=== PATIENT | female | born 1975 | race Caucasian/White ===

== ENCOUNTER → 2016-12-07 | Outpatient (CLI) | payer MEDICAID ==
[2016-12-07 15:24] VITALS: BP 132/86; PULSE 99; RESP 20; TEMP 98.5; BMI 45.7
--- NOTE | 2016-12-07 19:08 | P.HPBAR ---
Bariatric H&P - History & Physicial H&P Date: 12/07/16 History & Physicial: Visit/CC: first visit Patient initial contact: 12/04/16 Initial weight: 1414.755 kg Initial weight in pounds: 3119.00 Height: 5 ft 9.25 in Initial BMI: 457.2 Last weight: Current weight: 141.475 kg Current weight in pounds: 311.90 Current BMI: 45.7 [place] body weight (based on NIH guidelines): 66.338 kg Excess body weight loss: 94.4% The patient is a 41 year-old F who presents for Bariatric Assessment. Patient her to discuss bariatric surgery. She went to a recent seminar. She is interested in sleeve gastrectomy. She feels this is more appropriate for her than the lap band or gastric bypass. 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 She has sleep study scheduled in January. She requires a 6 month supervised weight loss program. The patient has borderline hypertension. She also has urinary incontinence. She is hoping her weight loss will improve her comorbidities. Denies GERD symptoms, no dysphagia, no history of DVT. Review of Systems The patient denies any acute changes in his vision or hearing, no dysphagia or odynophagia, no chest pain or shortness of breath, no dysuria or hematuria, no headache, no runny nose, no rectal bleeding or melena, no unexplained weight loss Past Medical History Past Medical History: No Reported History History of Any Multi-Drug Resistant Organisms: None Reported Past Surgical History: Bladder Surgery, Cholecystectomy, Hysterectomy Additional Past Surgical History / Comment(s): BLADDER SUSPENSION, ENDOMETRIOSIS SURGERY Past Anesthesia/Blood Transfusion Reactions: No Reported Reaction Past Psychological History: No Psychological Hx Reported Smoking Status: Former smoker Past Alcohol Use History: Rare Additional Past Alcohol Use History / Comment(s): QUIT SMOKING IN 2003, STARTED SMOKING AT AGE 11/ /2 PPD Past Drug Use History: None Reported - Past Family History Mother Family Medical History: Deep Vein Thrombosis (DVT) Surgical - Exam Vital Signs Temp Pulse Resp BP 98.5 F 99 20 132/86 12/07/16 15:14 12/07/16 15:14 12/07/16 15:14 12/07/16 15:14 Physical exam: General: Well-developed, well-nourished HEENT: Normocephalic, sclerae nonicteric Abdomen: Nontender, nondistended Extremities: No edema Neuro: Alert and oriented Bariatric Assessment & Plan (1) Morbid obesity with BMI of 45.0-49.9, adult Narrative/Plan: The patient I discussed the surgical procedure in detail. The risks of bleeding , infection, stenosis, leak, abscess, fistula formation, poor weight loss, chronic reflux, CT, PE, DVT, and were discussed. She understands these risks and wishes to proceed. We'll proceed with 6 month supervised weight loss program. We'll plan preoperative EGD. Await findings of sleep study, psychiatric evaluation, and PCP letter. Status: Acute Bariatric Checklist Checklist: Plan: Checklist: EGD: 1. Hiatal hernia: 2. H. Pylori: HgbA1c: Vitamin D: Smoking: Former smoker Primary care physician referral: Dr Garcia Psychiatry clearance: Cardiology clearance: Sleep study: Diet journal: VTE risk score: VTE risk level: Rehab needs at discharge:
== END | disposition home or self-care (01) ==
LOC: BARWHC3 14:58
PROVIDERS: ATTEND Surgery
DX: Z01.818 Encounter for other preprocedural examination (principal); E66.01 Morbid (severe) obesity due to excess calories; Z68.42 Body mass index [BMI] 45.0-49.9, adult; Z87.891 Personal history of nicotine dependence; R32 Unspecified urinary incontinence
CPT/HCPCS: 99201

== ENCOUNTER → 2016-12-11 | Outpatient (CLI) | payer MEDICAID ==
--- NOTE | 2016-12-11 12:49 | FL ---
EXAMINATION TYPE: FL barium swallow DATE OF EXAM: 12/11/2016 8:24 AM COMPARISON: NONE HISTORY: Dysphagia TECHNIQUE: Double contrast study FINDINGS: Esophagus dilates to normal caliber has normal contour to the gastroesophageal junction. Ga stroesophageal junction opens to normal caliber. In the horizontal drinking position there is complet e stripping of the esophageal bolus. No intraluminal or extramural defects are evident. IMPRESSION: Normal esophagram.
== END | disposition home or self-care (01) ==
LOC: RADFLWHC 07:34
PROVIDERS: ATTEND Internal Medicine
DX: R13.10 Dysphagia, unspecified (principal)
CPT/HCPCS: 74220

== ENCOUNTER 2017-01-09 06:19 | Emergency (ER) | payer MEDICAID, OTHER ==
[2017-01-09 06:27] VITALS: BP 143/81; PULSE 93; RESP 18; TEMP 97.7
--- NOTE | 2017-01-09 06:45 | ED ---
General Adult HPI - General Chief complaint: Back Pain/Injury Stated complaint: low back, right knee pain/injury-[facility] Time Seen by Provider: 01/09/17 06:35 Source: patient, RN notes reviewed, old records reviewed Mode of arrival: ambulatory Limitations: no limitations - History of Present Illness Initial comments: This is a 41-year-old female ER for evaluation. This patient is a presents for evaluation of right hip pain right sided back pain and pain around her right knee. Patient's no significant medical history, was lifting a patient earlier today and felt pain in twinging in her right side. Both symptoms have progressed throughout her workday. Patient denies any specific trauma, injury her happened during lifting. No loss of bowel or bladder, no neurological deficits. Patient has no complaints at this time - Related Data Home Medications Medication Instructions Recorded Confirmed No Known Home Medications [No 07/13/15 02/22/16 Known Home Medications] Allergies Allergy/AdvReac Type Severity Reaction Status Date / Time Iodinated Contrast Media - Allergy Rash/Hives Verified 01/09/17 06:26 Oral and Review of Systems ROS Statement: Those systems with pertinent positive or pertinent negative responses have been documented in the HPI. ROS Other: All systems not noted in ROS Statement are negative. Past Medical History Past Medical History: No Reported History History of Any Multi-Drug Resistant Organisms: None Reported Past Surgical History: Bladder Surgery, Cholecystectomy, Hysterectomy Additional Past Surgical History / Comment(s): BLADDER SUSPENSION, ENDOMETRIOSIS SURGERY Past Anesthesia/Blood Transfusion Reactions: No Reported Reaction Past Psychological History: No Psychological Hx Reported Smoking Status: Former smoker Past Alcohol Use History: Rare Additional Past Alcohol Use History / Comment(s): QUIT SMOKING IN 2003, STARTED SMOKING AT AGE 11/ /2 PPD Past Drug Use History: None Reported - Past Family History Mother Family Medical History: Deep Vein Thrombosis (DVT) General Exam Limitations: no limitations General appearance: alert, in no apparent distress Head exam: Present: atraumatic, normocephalic, normal inspection Eye exam: Present: normal appearance, PERRL, EOMI. Absent: scleral icterus, conjunctival injection, periorbital swelling ENT exam: Present: normal exam, mucous membranes moist Neck exam: Present: normal inspection. Absent: tenderness, meningismus, lymphadenopathy Respiratory exam: Present: normal lung sounds bilaterally. Absent: respiratory distress, wheezes, rales, rhonchi, stridor Cardiovascular Exam: Present: regular rate, normal rhythm, normal heart sounds. Absent: systolic murmur, diastolic murmur, rubs, gallop, clicks GI/Abdominal exam: Present: soft, normal bowel sounds. Absent: distended, tenderness, guarding, rebound, rigid Extremities exam: Present: normal inspection, full ROM, normal capillary refill. Absent: tenderness, pedal edema, joint swelling, calf tenderness Back exam: Present: normal inspection Neurological exam: Present: alert, oriented X3, CN II-XII intact Psychiatric exam: Present: normal affect, normal mood Skin exam: Present: warm, dry, intact, normal color. Absent: rash Course Vital Signs 01/09/17 06:22 Temperature 97.7 F Pulse Rate 93 Respiratory 18 Rate Blood Pressure 143/81 O2 Sat by Pulse 96 Oximetry - Reevaluation(s) Reevaluation #1: 01/09/17 06:44 Patient's in no acute distress, able to ambulate without difficulty Medical Decision Making - Medical Decision Making 41 female here for evaluation, patient coming in for evaluation after lifting injury earlier today. No bony tenderness, no neurological deficit. Patient states her pain is feeling better, she has no modifying factors for pain, worse when she sitting, patient can be discharged home Disposition Clinical Impression: Strain of right hip, Strain of knee and leg, right Disposition: HOME SELF-CARE Condition: Good Instructions: Low Back Strain (ED) Referrals: Kaela Garcia MD [Primary Care Provider] - 1-2 days
== END 2017-01-09 06:59 | disposition home or self-care (01) ==
LOC: EC 06:19
DX: S76.011A Strain of muscle, fascia and tendon of right hip, initial encounter (principal); S86.911A Strain of unspecified muscle(s) and tendon(s) at lower leg level, right leg, initial encounter; X50.0XXA Overexertion from strenuous movement or load, initial encounter; Y93.F2 Activity, caregiving, lifting; Z91.041 Radiographic dye allergy status; Z87.891 Personal history of nicotine dependence
CPT/HCPCS: 99283

== ENCOUNTER → 2017-01-10 | Outpatient (CLI) | payer OTHER ==
--- NOTE | 2017-01-10 10:13 | XR ---
Right knee HISTORY: Trauma and pain 3 views of the right knee No comparisons Bone mineralization, joint spaces and alignment are maintained. There is no joint effusion. IMPRESSION: No fracture or dislocation.
--- NOTE | 2017-01-10 10:15 | XR ---
Lumbar spine HISTORY: Pain 3 views of the lumbar spine on 4 images, correlation to previous exam 15 December 2014 Lumbar vertebral bodies show preserved height, alignment, bone mineralization is reduced. There is sp ondylosis present at multiple levels, loss of disc height L4-5, L5-S1. Sclerosis present in the poste rior elements. Surgical clips in the right upper quadrant. IMPRESSION: Degenerative disc disease and facet arthropathy. Suspect osteopenia.
== END | disposition home or self-care (01) ==
LOC: RADXRMAIN 09:31
PROVIDERS: ATTEND Emergency Medicine
DX: S39.012A Strain of muscle, fascia and tendon of lower back, initial encounter (principal); M51.36 Other intervertebral disc degeneration, lumbar region; M46.86 Other specified inflammatory spondylopathies, lumbar region; S83.91XA Sprain of unspecified site of right knee, initial encounter
CPT/HCPCS: 72100

== ENCOUNTER → 2017-01-16 | Outpatient (CLI) | payer OTHER ==
--- NOTE | 2017-01-16 21:18 | MR ---
EXAMINATION TYPE: MR lumbar spine wo con DATE OF EXAM: 01/16/2017 1:38 PM COMPARISON: NONE HISTORY: 41-year-old female with back pain, tingling and numbness TECHNIQUE: Multiplanar, multisequence images of the lumbar spine were acquired. FINDINGS: Vertebral body heights are preserved and alignment is maintained. There is variable mild desiccation of L3-S1 intervertebral discs. Posterior annular fissure is noted in a right paracentral location at L5-S1. Facet arthropathy lower lumbar spine. No suspicious bone marrow replacement. Conus medullaris is normal. No prevertebral or paravertebral soft tissue abnormality seen. There is a component of mild congenital spinal canal stenosis within the mid to lower lumbar spine wi th AP canal dimension of 1.3 cm. There is further accentuation of the thecal sac from prominent dorsal epidural fat opposite L3-L4 and below. At T12-L1, no spinal canal or neuroforaminal stenosis. At L1-L2, no spinal canal or neuroforaminal stenosis. At L2-L3, no spinal canal or neuroforaminal stenosis. At L3-L4, there is diffuse disc bulge within it or foraminal protrusion mildly narrowing the left jojo roforamen. No significant spinal canal stenosis. At L4-L5, there is facet degenerative change with a eccentric left-sided disc bulge, congenital canal narrowing, and prominent dorsal epidural fat. There is overall mild narrowing of the spinal canal an d mild left neuroforaminal stenosis. At L5-S1, there is hypertrophic facet arthropathy with mild circumferential attenuation of the thecal sac. No significant neuroforaminal stenosis. No prevertebral or paravertebral soft tissue abnormality seen. IMPRESSION: 1. Mild degenerative disc disease mid to lower lumbar spine and facet arthropathy lower lumbar spine. No vertebral compression collapse or malalignment. 2. Small right paracentral annular fissure at L5-S1 and eccentric left-sided disc bulges at L3-L4 and L4-L5 mildly narrowing the left-sided neuroforamina at these levels and with disc material closely a pproaching the traversing left L5 nerve root at L4-L5. 3. Mild congenital spinal canal narrowing mid to lower lumbar spine. There is also prominent dorsal e pidural fat with changes resulting in mild overall spinal canal stenosis at L4-L5. No high-grade sean l compromise.
== END | disposition home or self-care (01) ==
LOC: RADMRIMAIN 12:56
PROVIDERS: ATTEND Emergency Medicine
DX: S39.012A Strain of muscle, fascia and tendon of lower back, initial encounter (principal); M48.06 Spinal stenosis, lumbar region; M99.73 Connective tissue and disc stenosis of intervertebral foramina of lumbar region; M51.26 Other intervertebral disc displacement, lumbar region; M51.36 Other intervertebral disc degeneration, lumbar region; M46.86 Other specified inflammatory spondylopathies, lumbar region
CPT/HCPCS: 72148

== ENCOUNTER → 2017-03-23 | Outpatient (CLI) | payer MEDICAID ==
--- NOTE | 2017-03-23 11:16 | XR ---
EXAM TYPE: LUMBAR SPINE X RAY SERIES COMPARISON: 01/10/2017 HISTORY: Pain TECHNIQUE: 3 views are submitted. FINDINGS: Alignment is anatomic. The pedicles are intact. The transverse processes are intact. There is no spondylolisthesis. Hypertrophic changes are seen anteriorly at multiple levels. Alignment is stable upon flexion and extension. IMPRESSION: 1. Although level facet arthropathy. Alignment stable post flexion and extension views with mild mult ilevel degenerative disc disease and facet arthropathy.
== END | disposition home or self-care (01) ==
LOC: RADXRMAIN 10:17
PROVIDERS: ATTEND Orthopaedic Surgery Orthopaedic Surgery of the Spine
DX: M12.88 Other specific arthropathies, not elsewhere classified, other specified site (principal); M51.36 Other intervertebral disc degeneration, lumbar region
CPT/HCPCS: 72100

== ENCOUNTER → 2017-04-02 | Outpatient (CLI) | payer MEDICAID ==
[2017-03-30 11:34] VITALS: BMI 44.6
[2017-04-02 11:41] VITALS: BP 128/88; PULSE 87; RESP 16; TEMP 98.2
--- NOTE | 2017-04-03 12:59 | P.CONS ---
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, while she was helping she started feeling severe low back pain, and is constant with radiation to the posterior lateral aspect of her lower extremities, she is done physical therapy any benefit , he was taken nonsteroidal anti-inflammatory medication ( LODIN ) without any benefit, she tried also oral steroid no benefit, she describes the intensity of her pain fluctuates between 5/10 and increases with any activity 8-10 over 10, denies any change in the bowel movement or urination, any motor or sensory deficits,, and increased with any walking or sitting for more than 1 hour, he position Past Medical History Past Medical History: No Reported History Additional Past Medical History / Comment(s): pain lower lumbar,sacral spine History of Any Multi-Drug Resistant Organisms: None Reported Past Surgical History: Bladder Surgery, Cholecystectomy, Hysterectomy Additional Past Surgical History / Comment(s): BLADDER SUSPENSION, ENDOMETRIOSIS SURGERY Past Anesthesia/Blood Transfusion Reactions: Previous Problems w/ Anesthesia, Family Hisory of Malignant Hyperthermia Additional Past Anesthesia/Blood Transfusion Reaction / Comm: pt states experiences decrease b/p following anesthesia,. mother hx malignant hyperthermia Past Psychological History: No Psychological Hx Reported Smoking Status: Former smoker Past Alcohol Use History: Rare Additional Past Alcohol Use History / Comment(s): QUIT SMOKING IN 2003, STARTED SMOKING AT AGE 11/ 1/2 PPD Past Drug Use History: None Reported - Past Family History Mother Family Medical History: Deep Vein Thrombosis (DVT) Medications and Allergies Home Medications Medication Instructions Recorded Confirmed Type Cyclobenzaprine [Flexeril] 10 mg PO TID PRN 03/30/17 04/02/17 History Etodolac [Lodine] 500 mg PO TID 03/30/17 04/02/17 History buPROPion [Wellbutrin] 100 mg PO DAILY 03/30/17 04/02/17 History Allergies Allergy/AdvReac Type Severity Reaction Status Date / Time Iodinated Contrast Media - Allergy Rash/Hives Verified 04/02/17 11:28 Oral and Physical Exam Vitals: Vital Signs Temp Pulse Resp BP 04/02/17 11:30 98.2 F 87 16 128/88 Social history : not smoker , NO ETOH , NO Illegal drugs use . Review of Systems : 1- Constitutional : no chills , no fever , no night sweats , 2- Ears : no ear discharge , no change in hearing 3-Nose, Mouth ,Throat ; no bleeding gums, no sore throat , no epistaxis , 4-Cardiovascular : Denies chest pain, , no orthopnea , no palpitation 5-Respiratory : Denies cough , no dyspnea , no hemoptysis 6-Gastrointestinal :, no change in bowel habits , no coffee- ground emesis . 7-Genitourinary : No hematuria , no discharge , no incontinence, 8-Musculoskeletal : No gait dysfunction , report low back pain , 9- Neurological : no ataxia , no tremor , no sezure , 10-Psychatric , no suicidal ideation no hallucination 11- Endocrine : no cold intolerence , no polyuria , no polydypsia , 12-Hematologic : no easy bleeding , no easy brusing , 13-Allergic / immunology : no angioedema , no wheezing ,no allergic rhinitis 14-Integumentary : no brttle nails , no change hair / nails , no foot/leg ulcers . Physical Examinations : 1-Constitutional : Cooperative , not in acute distress . 2-HEENT : nech ; supple , no Lymphadenopathy , no Thyromegaly , :eyes , no icterus, no photophobia . ENT : , normal oropharynx , no Thrush 3- Respiratory : Chest clear to auscultations Bilaterally , no wheezing . 4- Cardiovascular : regular rate and rhythem , S1 , S2 , no S3 , no S4. 5- Gastrointestinal: abdomen soft no tenderness , no organomegally . 6- Genitourinary : Defferred . 7-Integumentary : No cellulitis , no ulcers , normal skin turgor , no cyanotic . 8- neurologic : Cranial nerve II to XII intact , no focal neurological deffecit 9-psychatric : alert , oriented X 3 , appropriate affect , intact judgment and insight . 10-Lymphatic : no Lymphadenopathy. 11- musculoskeltal: normal gait Cervical Spine motor stregnth in the deltoid and biceps, normal right side , normal Left side motor stregnth biceps and the wrist extensors normal right side ,normal left side . motor stregnth in the triceps muscle . normal Right side , normal Left side deep tendon reflexes normal at the biceps , normal at Brachioradialis , normal at tricep. Lumber spine moter stegnth lower extremities ,thigh and legs 5/5 Right side , 5/5 Left side deep tendon reflexes : normal Knee Jerk , normal ankle Jerk positive lumber facet Loading Test Range of motion of the lumbar spine Flexion 45 degrees, extension 10 degrees strait leg raising test negative bilaterally Fabere test negative bilaterally Results Comments: lumbar spine x-ray series done on 03/23/2017 at [facility]= multilevel lumbar facet arthropathy, multilevel lumbar degenerative disc disease. Prior level lumbar spine= done 01/16/2017 at [facility]= mild disc desiccation at L3 to S1 , posterior annular fissure at right-sided L5-S1 And there is facet arthropathy in the lower part of the lumbar spine Assessment and Plan Plan: Assessment and plan = - Chronic low back pain secondary to lumbar degenerative disc disease , lumbar spondylosis with facet arthropathy without myelopathy , - diagnoses, prognosis, and treatment options including but not limited to physical therapy, surgical interventions, interventional therapies and medication management including narcotics and adjuvant medication were discussed with the patient and all questions answered to the patient's satisfaction. -medication management=1-discontinue Lodine 2-start Mobic 15 mg daily -procedure= diagnostic medial branch block lumbar area at L3-4 /L4 5/L5-S1 to the diagnostic block twice if it's positive Will proceed with a radiofrequency ablation of the medial branch lumbar area, either risk and benefit and alternatives discussed with the patient he agreed with the preceding Time with Patient: Greater than 30
== END | disposition home or self-care (01) ==
LOC: PNWHC3 11:10
PROVIDERS: ATTEND Specialist
DX: M51.36 Other intervertebral disc degeneration, lumbar region (principal); M47.816 Spondylosis without myelopathy or radiculopathy, lumbar region; M46.86 Other specified inflammatory spondylopathies, lumbar region; G89.29 Other chronic pain; Z87.891 Personal history of nicotine dependence; Z79.1 Long term (current) use of non-steroidal anti-inflammatories (NSAID); Z79.899 Other long term (current) drug therapy
CPT/HCPCS: 99211

== ENCOUNTER 2017-04-06 09:38 | Day surgery (SDC) | payer MEDICAID ==
[2017-04-05 10:48] VITALS: BMI 43.9
[~2017-04-06 09:38] MED LIST: LACTATED RINGERS 1,000 ML IV SCH
[2017-04-06] MEDS ORDERED: LIDOCAINE 1% 20 ML VIAL (10MG/ML) FOR IV START INTRADERMA ONE (10:07)
[2017-04-06 10:23] VITALS: TEMP 97.8
[2017-04-06] MEDS ORDERED: TRIAMCINOLONE ACETONIDE 40 MG/ML 1 ML VIAL ONE (10:23)
[2017-04-06] MEDS ORDERED: fentaNYL (PF) 50 MCG/ML 2 ML AMP ONE (10:23)
[2017-04-06] MEDS ORDERED: BUPIVACAINE (PF) 0.5% 30 ML VIAL ONE (10:23)
[2017-04-06] MEDS ORDERED: MIDAZOLAM 2 MG/2 ML VIAL ONE (10:23)
--- NOTE | 2017-04-06 10:49 | P.PCN ---
Date of Procedure: 04/06/17 Procedure(s) Performed: PREOPERATIVE DIAGNOSIS : 1- Lumbar spondylosis with Facet Arthropathy without myelopathy . 2- Lumber degenerative disc disease POSTOPERATIVE DIAGNOSIS: 1- Lumbar spondylosis with Facet Arthropathy without myelopathy . 2- Lumber degenerative disc disease PROCEDURE: Diagnostic bilateral L3 -4 , L4 -5 , and L5-S1 medial branch block under fluoroscopy ANESTHESIA: Local with 1% lidocaine 6 ml ; IV sedation with Versed 3 mg and Fentanyl 100 mcg. EBL: Minimal COMPLICATION: None. IV FLUIDS: 100 mL of normal saline. PROCEDURE INDICATION: Chronic low back pain secondary to Facet arthropathy unresponsive to conservative treatment. PROCEDURE DESCRIPTION: the patient was seen and identified in the preop holding area , risks and benefits and possible complications of the procedure and alternative were discussed with the patient, and the patient agreed to proceed with the procedure and signed the consent IV was started and vital signs monitored during the procedure and fluoroscopy was used to maximize the benefit and accuracy of the needle placement, and sedation was given to decrease patient anxiety, patient was taken to the procedure room and placed in prone position vital signs monitored in the back prepped with chlorhexidine X3 then under strict sterile technique using a right oblique fluoroscopy ,the junction of the transverse process and the superior articulating process of the right L3- 4 , L4- 5, and L5-S1 vertebra which corresponding to the fluoroscopy image of the eye of the Zachary dog on the block side for the medial branches and subsequently , after local infiltration of skin and subcu tissuies with lidocaine 1% one mL at each level ,then 22- gauge 5 inches long Quincke-type needles , 3 needle was used , each one of them placed at the junction of the base of the transverse process and the superior articular process at the appropriate level, and the needle was advanced until the periosteum contacted, needle placement confirmed with AP oblique and lateral view and after appropriate needle placement confirmed, and after negative aspiration for heme and CSF and there was no paresthesia 1-1/2 mL of Marcaine 0.5% mixed with 40 mg Kenalog , then half mL injected at each level after negative aspiration the needle subsequently removed and the same procedure repeated for the left side at left side at L3-4, L4- 5 and L5-S1 levels. At the end of the procedure and the needles removed and a bandage applied after the skin was cleaned the cleaning solution patient taken to recovery room in stable condition and monitors in the recovery room for 20-30 minutes and discharged home in stable condition after discharge criteria met and patient will follow up with the pain clinic in 2-4 weeks
[2017-04-06] MEDS ORDERED: IV FLUID CONTINUATION 500 ML IV ONE (10:54)
[2017-04-06 11:04] VITALS: RESP 18
--- NOTE | 2017-04-06 11:12 | FL ---
EXAMINATION TYPE: FL guided pain mgmt statistic DATE OF EXAM: 04/06/2017 10:58 AM HISTORY: Flouroscopy time 24 seconds of fluoroscopy provided. IMPRESSION: 1. Fluoroscopy time.
[2017-04-06 11:39] VITALS: BP 110/71; PULSE 79
== END 2017-04-06 12:02 | disposition home or self-care (01) ==
LOC: ORPAIN 09:38
PROVIDERS: ATTEND Specialist
DX: G89.29 Other chronic pain (principal); M47.816 Spondylosis without myelopathy or radiculopathy, lumbar region; M46.96 Unspecified inflammatory spondylopathy, lumbar region; M51.36 Other intervertebral disc degeneration, lumbar region; Z79.899 Other long term (current) drug therapy; Z91.041 Radiographic dye allergy status; Z87.891 Personal history of nicotine dependence
CPT/HCPCS: 64493; 64494; 64495; 99152; J2250; J3301; J3010

== ENCOUNTER 2017-05-03 12:44 | Day surgery (SDC) | payer MEDICAID ==
[2017-05-03 13:16] VITALS: TEMP 98.2
[2017-05-03] MEDS ORDERED: LIDOCAINE 1% 20 ML VIAL (10MG/ML) FOR IV START INTRADERMA ONE (13:17)
[2017-05-03] MEDS ORDERED: BUPIVACAINE (PF) 0.5% 30 ML VIAL ONE (13:34)
[2017-05-03] MEDS ORDERED: DEXAMETHASONE SOD PHOS (MDV) 100 MG/10 ML VIAL ONE (13:34)
[2017-05-03] MEDS ORDERED: fentaNYL (PF) 50 MCG/ML 2 ML AMP ONE (13:34)
[2017-05-03] MEDS ORDERED: MIDAZOLAM 2 MG/2 ML VIAL ONE (13:34)
--- NOTE | 2017-05-03 14:03 | P.PCN ---
Date of Procedure: 05/03/17 Preoperative Diagnosis: Postoperative Diagnosis: Procedure(s) Performed: PREOPERATIVE DIAGNOSIS : 1- Lumbar spondylosis with Facet Arthropathy without myelopathy . 2- Lumber degenerative disc disease POSTOPERATIVE DIAGNOSIS: 1- Lumbar spondylosis with Facet Arthropathy without myelopathy . 2- Lumber degenerative disc disease PROCEDURE: Diagnostic bilateral L3 -4 , L4 -5 , and L5-S1 medial branch block under fluoroscopy#2nd ANESTHESIA: Local with 1% lidocaine 6 ml ; IV sedation with Versed 4 mg and Fentanyl 100 mcg. EBL: Minimal COMPLICATION: None. IV FLUIDS: 100 mL of normal saline. PROCEDURE INDICATION: Chronic low back pain secondary to Facet arthropathy unresponsive to conservative treatment. PROCEDURE DESCRIPTION: the patient was seen and identified in the preop holding area , risks and benefits and possible complications of the procedure and alternative were discussed with the patient, and the patient agreed to proceed with the procedure and signed the consent IV was started and vital signs monitored during the procedure and fluoroscopy was used to maximize the benefit and accuracy of the needle placement, and sedation was given to decrease patient anxiety, patient was taken to the procedure room and placed in prone position vital signs monitored in the back prepped with chlorhexidine X3 then under strict sterile technique using a right oblique fluoroscopy ,the junction of the transverse process and the superior articulating process of the right L3- 4 , L4- 5, and L5-S1 vertebra which corresponding to the fluoroscopy image of the eye of the Zachary dog on the block side for the medial branches and subsequently , after local infiltration of skin and subcu tissuies with lidocaine 1% one mL at each level ,then 22- gauge 5 inches long Quincke-type needles , 3 needle was used , each one of them placed at the junction of the base of the transverse process and the superior articular process at the appropriate level, and the needle was advanced until the periosteum contacted, needle placement confirmed with AP oblique and lateral view and after appropriate needle placement confirmed, and after negative aspiration for heme and CSF and there was no paresthesia 1-1/2 mL of Marcaine 0.5% mixed with 10 mg Dexamethasone , then half mL injected at each level after negative aspiration the needle subsequently removed and the same procedure repeated for the left side at left side at L3-4, L4- 5 and L5- S1 levels. At the end of the procedure and the needles removed and a bandage applied after the skin was cleaned the cleaning solution patient taken to recovery room in stable condition and monitors in the recovery room for 20-30 minutes and discharged home in stable condition after discharge criteria met and patient will follow up with the pain clinic in 2-4 weeks Implants: Indications for Procedure: Operative Findings: Description of Procedure:
[2017-05-03] MEDS ORDERED: IV FLUID CONTINUATION 1,000 ML IV ONE (14:10)
--- NOTE | 2017-05-03 14:25 | FL ---
Fluoroscopy HISTORY: Pain 11 seconds fluoroscopy time supplied to the referring clinician. 4 intraoperative C-arm images docum ent the procedure. See dictated report from anesthesia.
[2017-05-03] MEDS ORDERED: KETOROLAC 30 MG/ML 1 ML VIAL IVP ONE ×2 (14:49→15:15)
[2017-05-03 14:56] VITALS: RESP 18
[2017-05-03] MEDS ORDERED: HYDROmorphone 1 MG/ML 1 ML SYRINGE IVP ONE ×2 (15:08→15:19)
[2017-05-03 15:58] VITALS: BP 139/89; PULSE 88
== END 2017-05-03 16:10 | disposition home or self-care (01) ==
LOC: ORPAIN 12:44
PROVIDERS: ATTEND Specialist
DX: G89.29 Other chronic pain (principal); M51.36 Other intervertebral disc degeneration, lumbar region; M47.816 Spondylosis without myelopathy or radiculopathy, lumbar region; M46.96 Unspecified inflammatory spondylopathy, lumbar region; Z91.041 Radiographic dye allergy status
CPT/HCPCS: 64493; 64494; 64495; 99152; J2250; J3010; J1885; J1170; J1100

== ENCOUNTER 2017-05-03 23:16 | Emergency (ER) | payer MEDICAID ==
[2017-05-03 23:35] VITALS: RESP 18; TEMP 98.3
[2017-05-04] MEDS ORDERED: SODIUM CHLORIDE 0.9% 1,000 ML IV ONE (00:38)
[2017-05-04] MEDS ORDERED: METOCLOPRAMIDE 5 MG/ML 2 ML VIAL IVP STA (00:39)
[2017-05-04] MEDS ORDERED: KETOROLAC 30 MG/ML 1 ML VIAL IVP STA (00:39)
[2017-05-04] MEDS ORDERED: diphenhydrAMINE 50 MG/ML 1 ML VIAL IVP STA (00:39)
--- NOTE | 2017-05-04 00:41 | ED ---
Headache HPI - General Chief Complaint: Headache Stated Complaint: post procedure migraine Time Seen by Provider: 05/04/17 00:11 Source: RN notes reviewed Mode of arrival: wheelchair Limitations: no limitations - History of Present Illness Initial Comments: Patient is a 42-year-old female presents worsen for evaluation migraine headache. Patient states she had a fasicular block and burning of her nerves in her lumbar spine by pain management earlier today. Patient states she had a lot of pain after the procedure. Patient states she did have multiple doses of Dilaudid afterwards until she could finally stand up. Patient states when she got home she began developing a headache. Patient states the headache has progressively been getting worse throughout the night. Patient states she is an 8 out of 10 constant headache. Patient has changes in vision. Patient denies dizziness. Patient has ringing in the ears or ear pain. Patient denies paresthesias. Patient denies neck pain. Patient states she took Excedrin with no relief of symptoms. Patient denies fevers or chills. - Related Data Home Medications Medication Instructions Recorded Confirmed buPROPion [Wellbutrin] 100 mg PO DAILY 03/30/17 05/03/17 Meloxicam [Mobic] 7.5 mg PO BID 04/05/17 05/03/17 traMADol HCl [Ultram] 50 mg PO BID 05/03/17 05/03/17 Allergies Allergy/AdvReac Type Severity Reaction Status Date / Time Iodinated Contrast Media - Allergy Rash/Hives Verified 05/03/17 23:35 Oral and Review of Systems ROS Statement: Those systems with pertinent positive or pertinent negative responses have been documented in the HPI. ROS Other: All systems not noted in ROS Statement are negative. Past Medical History Past Medical History: No Reported History Additional Past Medical History / Comment(s): pain lower lumbar,sacral spine History of Any Multi-Drug Resistant Organisms: None Reported Past Surgical History: Bladder Surgery, Cholecystectomy, Hysterectomy Additional Past Surgical History / Comment(s): BLADDER SUSPENSION, ENDOMETRIOSIS SURGERY Past Anesthesia/Blood Transfusion Reactions: Previous Problems w/ Anesthesia, Family Hisory of Malignant Hyperthermia Additional Past Anesthesia/Blood Transfusion Reaction / Comment(s): pt states experiences decrease b/p following anesthesia,. mother hx malignant hyperthermia-patient has never had this problem Past Psychological History: No Psychological Hx Reported Smoking Status: Former smoker Past Alcohol Use History: Rare Additional Past Alcohol Use History / Comment(s): QUIT SMOKING IN 2003, STARTED SMOKING AT AGE 13 1/2 PPD Past Drug Use History: None Reported - Past Family History Mother Family Medical History: Deep Vein Thrombosis (DVT) General Exam - General Exam Comments Initial Comments: laying in exam room, no acute distress. Limitations: no limitations General appearance: alert, in no apparent distress Head exam: Present: atraumatic, normocephalic, normal inspection Eye exam: Present: normal appearance, PERRL, EOMI Pupils: Present: normal accommodation ENT exam: Present: normal exam Neck exam: Present: normal inspection Respiratory exam: Present: normal lung sounds bilaterally. Absent: respiratory distress Cardiovascular Exam: Present: regular rate, normal rhythm, normal heart sounds Extremities exam: Present: normal inspection Back exam: Present: normal inspection Neurological exam: Present: alert, oriented X3, CN II-XII intact, normal gait Expanded Patient oriented to: Present: person, place, time Speech: Present: fluid speech Cranial nerves: EOM's Intact: Normal, Facial Sensation: Normal Sensory exam: Upper Extremity Light Touch: Normal, Lower Extremity Light Touch: Normal Motor strength exam: RUE: 5, LUE: 5, RLE: 5, LLE: 5 Eye Response: (4) open spontaneously Motor Response: (6) obeys commands Verbal Response: (5) oriented Psychiatric exam: Present: normal affect, normal mood Skin exam: Present: warm, dry, intact, normal color. Absent: rash Course Vital Signs 05/03/17 05/04/17 23:31 03:53 Temperature 98.3 F Pulse Rate 108 H 66 Respiratory 18 18 Rate Blood Pressure 153/86 141/83 O2 Sat by Pulse 97 96 Oximetry Medical Decision Making - Medical Decision Making Patient is a 42-year-old female since emergency room for evaluation of migraine headache. Pain management procedure. Patient given medications and advised to follow-up with vice president of brand management. Patient has no neuro deficits. Return parameters discussed. Case discussed with Dr. Broussard. Disposition Clinical Impression: Headache Disposition: HOME SELF-CARE Condition: Good Instructions: Acute Headache (ED) Additional Instructions: Drink plenty of water. Take Tylenol or Motrin as needed. Please follow up with primary care provider or paint sprayer sandblaster in 1-2 days. If any new symptom arises or symptoms worsen, return to ER as soon as possible. Referrals: Kaela Garcia MD [Primary Care Provider] - 1-2 days Time of Disposition: 02:21
[2017-05-04] MEDS ORDERED: methylPREDNISolone SOD SUCCI 125 MG/2 ML VIAL IV STA (01:31)
[2017-05-04] MEDS ORDERED: DIAZEPAM 5 MG/ML 2 ML SYRINGE IVP STA (01:31)
[2017-05-04] MEDS ORDERED: HYDROmorphone 1 MG/ML 1 ML SYRINGE IVP STA (02:16)
[2017-05-04 03:54] VITALS: BP 141/83; PULSE 66
== END 2017-05-04 03:45 | disposition home or self-care (01) ==
LOC: EC 23:16
DX: R51 Headache (principal); H53.9 Unspecified visual disturbance; Z87.891 Personal history of nicotine dependence; Z79.1 Long term (current) use of non-steroidal anti-inflammatories (NSAID); Z79.891 Long term (current) use of opiate analgesic; Z79.899 Other long term (current) drug therapy; Z91.041 Radiographic dye allergy status
CPT/HCPCS: 96361; 96374; 96375; 99283

== ENCOUNTER → 2017-05-08 | Outpatient (CLI) | payer MEDICAID ==
[2017-05-08 13:21] VITALS: BP 119/87; PULSE 90; RESP 16; TEMP 97.7
--- NOTE | 2017-05-08 13:57 | P.PN ---
Progress Note - Text Patient returns for followup for chronic back pain with radiation to the hips. Patient recently underwent LMBB x 2, with almost complete pain relief for 2.5 days from first MBB, but developed pain/weakness/headache after second injection , immediately after which she was given multiple rounds of IV Dilaudid and ketorolac. After she returned home, she found that she had > 50% relief of back pain, but had to go to the ER because of her headache, which was also treated with IV medications later on. Patient continues on Mobic medications for pain with some relief. Patient denies adverse drug effects from medications. Today, pt denies new-onset weakness, bowel/bladder incontinence, or any other signs or symptoms of cauda equina syndrome. There are no signs of acute intoxication, and no indications of medication diversion or overuse. In addition to above, 13-point review of systems is also negative for chest pain , shortness of breath, changes in vision, changes in hearing, new onset weakness , abdominal pain, diarrhea, extreme fatigue, malaise, fever, skin changes, homicidal or suicidal ideation, or bowel or bladder incontinence. Vital Signs: Reviewed in EMR Gen: WDWN, AAOx3, NAD HEENT: NCAT, EOMI, hearing grossly normal Pulm: resp unlabored Abd: soft, NT, ND, obese Neck: supple, trachea midline ROM in flexion lumbar spine: reduced ROM in extension lumbar spine: reduced Lumbar paravertebral tenderness: + Facet loading: + bilateral SI joint tenderness: neg Jason's test: + bilateral, R > L Straight leg raise: neg bilateral Neuro: CN II-XII grossly intact, muscle strength lower extremities PRESERVED Imaging: Reviewed in EMR Assessment: 1. morbid obesity 2. lumbar spondylosis without myelopathy 3. chronic pain syndrome Plan: 1. Explanation: Opioid and psychological risk scores were reviewed. Diagnoses , prognoses, and multiple treatment options including but not limited to physical therapy, interventional therapies, adjuvant medical therapies, narcotic medication therapies, and surgery were discussed with the patient and all questions were answered to the patient's satisfaction. 2. Opioid agreement: no opioids prescribed today 3. Counseling: The patient was counseled extensively on BODY MASS INDEX, EXERCISE. Specifically, the patient was instructed regarding the importance of smoking cessation, obesity, and exercise in the context of both chronic pain and overall health. 4. Procedures: lumbar RFA, left versus right 5. Consultations: None 6. Investigations: None 7. Medications: none prescribed 8. Disposition: f/u for procedure as scheduled PQRS measures: 1-Patient's medications are documented in the chart. 2-Tobacco use is negative, counseling NOT given 3-Patient has had a pneumococcal vaccine. 4-Advanced care planning discussed, patient unable to give. 5-Opioid contract NOT signed with the patient. 6-Pain positive, follow-up visit or procedure scheduled 7-Patient's blood pressure measured and documented, and WNL. 8-Patient's weight was measured, and body mass index ABOVE the normal limits, and counseling was done. Patient instructed to follow up with PCP. 9-Patient WAS NOT identified as an unhealthy alcohol user.
== END ==
LOC: PNWHC3 12:54
PROVIDERS: ATTEND Anesthesiology
DX: M47.816 Spondylosis without myelopathy or radiculopathy, lumbar region (principal); G89.4 Chronic pain syndrome; E66.01 Morbid (severe) obesity due to excess calories; Z79.891 Long term (current) use of opiate analgesic
CPT/HCPCS: 99211

== ENCOUNTER 2017-06-19 06:50 | Day surgery (SDC) | payer MEDICAID ==
[2017-06-19 07:32] VITALS: RESP 18; TEMP 98
[2017-06-19] MEDS: LACTATED RINGERS 1,000 ML IV SCH ×2 (07:39→08:13)
--- NOTE | 2017-06-19 08:40 | P.PCN ---
Date of Procedure: 06/19/17 Preoperative Diagnosis: Postoperative Diagnosis: Procedure(s) Performed: Implants: Surgeon: Tristen Yen Pathology: none sent Condition: stable Disposition: PACU Indications for Procedure: Operative Findings: Description of Procedure: PREOPERATIVE DIAGNOSIS: Lumbar spondylosis without myelopathy and facet arthropathy POSTOPERATIVE DIAGNOSIS: Lumbar spondylosis without myelopathy and facet arthropathy PROCEDURES: Right Radiofrequency thermocoagulation, L3-L4, L4-L5, and L5-S1 medial branch, with fluoroscopic guidance. ANESTHESIA: 1% lidocaine plain; Conscious sedation with versed/fentanyl EBL: Minimal PROCEDURE INDICATION: The patient with low back pain secondary to lumbar arthropathy who had more than 50% relief of pain with previous diagnostic lumbar medial branch block with bupivacaine. Patient presents for right lumbar RFA today; no use of blood thinners. PROCEDURE DESCRIPTION / TECHNIQUE: The patient was seen and identified in the preoperative area. Risks, benefits, complications, and alternatives were discussed with the patient (including but not limited to incomplete pain relief , bleeding, infection, nerve damage, and allergies to medications), the patient agreed to proceed with the procedure and signed the consent after all questions were answered. Patient was taken to the OR and time out was completed to verify proper patient , position, laterality of pain, and allergies. Pt was placed in the prone position. IV was started. Vital signs remained stable throughout the procedure. A pillow was placed under the patients chest to decrease lordosis. The lumbosacral area was prepped and draped in the usual sterile fashion. Vital signs were closely monitored during the procedure. Conscious sedation was used during the procedure to decrease patients anxiety. Using AP and then oblique fluoroscopy, the eye of the Zachary dog corresponding to the connection between the superior and transverse articular processes of right L4, L5 and top of the sacrum were identified, marked, and localized with 1% lidocaine. Subsequently, a 20 gauge, 150-mm radiofrequency cannula with a 10-mm active tip was advanced guided by fluoroscopy to each of the eyes of the Zachary dog at right L3, L4, and L5 medial branches. Each site then underwent sensory testing at 50 Hz and 0 to 1 volt and motor testing at 2 Hz and 0 to 3 volt with local stimulation, but no radicular symptoms down the legs. Thereafter the right L3, L4, and L5 medial branch sites underwent radiofrequency thermocoagulation at 80 degrees Celsius for 90 seconds after injecting 0.5 ml of PF lidocaine 1%. After thermocoagulation, 1 ml of the block solution containing Kenalog 40 mg and 2 mL of preservative-free normal saline was injected at the right L3, L4, and L5 medial branch levels after negative aspiration of CSF and blood and with no paresthesias. Cannulas were retracted while injecting lidocaine 1% until the needles were removed. At the end of the procedure, the skin was cleansed and bandages were applied. COMPLICATIONS: No acute complications. DISPOSITION / PLANS: The patient was placed in a supine position and transferred to the recovery area in a stable condition for observation and was discharged from the recovery room after meeting discharge criteria. Home discharge instructions given to the patient by the staff. The patient was reexamined prior to discharge. The patient will schedule a left lumbar RFA at next visit.
[2017-06-19 09:24] VITALS: BP 126/86; PULSE 80
[2017-06-19] MEDS ORDERED: IV FLUID CONTINUATION 1,000 ML IV ONE (09:24)
--- NOTE | 2017-06-19 09:24 | FL ---
Fluoroscopy HISTORY: Pain 7 seconds fluoroscopy time supplied to the referring clinician. 3 intraoperative C-arm images docume nt the procedure. See dictated report from anesthesia.
== END 2017-06-19 09:26 | disposition home or self-care (01) ==
LOC: ORPAIN 06:50
PROVIDERS: ATTEND Anesthesiology
DX: M47.816 Spondylosis without myelopathy or radiculopathy, lumbar region (principal); Z79.899 Other long term (current) drug therapy; Z91.041 Radiographic dye allergy status
CPT/HCPCS: 64635; 64636 ×2; 99152; J2250; J3301; J3010; 99153

== ENCOUNTER → 2017-06-19 | Outpatient (CLI) | payer MEDICAID ==
--- NOTE | 2017-06-20 07:18 | PN ---
Primary care physician: Dr. Garcia. 42 -year-old female patient coming in for a compliance check regarding obstructive sleep apnea treatment. The patient was diagnosed having severe obstructive sleep apnea with an AHI of 55. The patient was placed on CPAP pressure of 7 cm water. On todays evaluation, the compliance data is not a good reflection of what the patient was doing at home knowing that she had been camping for around two weeks and she had been off her treatment. She had noted a big difference with recurrence of her sleepiness as the patient has not been taking her treatment. Prior to that, while on treatment, she was feeling much more alert and awake. I checked her compliancy over the past three months. Her CPAP use has been on average 4.9 hours per night. Leak factors 5 L per minute and AHI while on treatment was down to 1.3. BP 150/93, pulse 78, respiratory rate 16, temperature 98.1 and weight is 321. General appearance: Calm, comfortable. HEENT: Short neck, crowding of posterior pharynx. There is no goiter or neck masses. Lungs diminished. Otherwise clear. Heart sounds regular rate and rhythm, normal S1, S2. Abdomen soft, nontender. No organomegaly. Extremities: No edema. No cyanosis. No clubbing. IMPRESSION: 1. Severe symptomatic obstructive sleep apnea with an AHI of 55. Currently on CPAP of 7. 2. Hypersomnia, improved. 3. Obesity with interval few pounds weight gain, currently is up to 321 pounds. PLAN: 1. Continue CPAP at pressure of 7. 2. Improved compliancy. 3. Weight loss. 4. Optimize sleep hygiene measures. 5. See me back in a years time for follow up, earlier if needed. DOMINIQUE
== END ==
LOC: SLEEP 14:48
PROVIDERS: ATTEND Internal Medicine Critical Care Medicine
DX: G47.33 Obstructive sleep apnea (adult) (pediatric) (principal); G47.10 Hypersomnia, unspecified; E66.9 Obesity, unspecified

== ENCOUNTER → 2017-07-19 | Day surgery (SDC) | payer MEDICAID ==
[2017-07-16 14:17] VITALS: BMI 44.6
[~2017-07-19] MED LIST changes: +IV FLUID CONTINUATION 1,000 ML IV ONE; +LIDOCAINE 1% 20 ML VIAL (10MG/ML) FOR IV START INTRADERMA ONE; +fentaNYL (PF) 50 MCG/ML 2 ML AMP IV ONE; +fentaNYL (PF) 50 MCG/ML 2 ML AMP IVP ONE
[2017-07-19 11:34] VITALS: RESP 16; TEMP 98.2
--- NOTE | 2017-07-19 12:36 | FL ---
EXAMINATION TYPE: FL guided pain mgmt statistic DATE OF EXAM: 07/19/2017 HISTORY: Flouroscopy time 20 seconds of fluoroscopy provided. IMPRESSION: 1. Fluoroscopy time.
--- NOTE | 2017-07-19 12:46 | P.PCN ---
Date of Procedure: 07/19/17 Preoperative Diagnosis: PREOPERATIVE DIAGNOSIS: Lumbar spondylosis without myelopathy, morbid obesity POSTOPERATIVE DIAGNOSIS: Lumbar spondylosis without myelopathy,morbid obesity PROCEDURES : Left Radiofrequency thermocoagulation,L2-4, L3-L4, L4-L5, and L5- S1 medial branch, with fluoroscopic guidance ANESTHESIA: IV sedation with versed and fentaneyl and local infiltration with lidocaine 1% 5 ml EBL: Minimal PROCEDURE INDICATION: The patient with low back pain secondary to lumbar facet arthropathy who had more than 50% relief of her pain with previous diagnostic lumbar medial branch block with bupivacaine. PROCEDURE DESCRIPTION / TECHNIQUE: The patient was seen and identified in the preoperative area. Risks, benefits, complications, including but not limited to risk of infection ,bleeding , allergic reactions to the medications and no complete pain releife , and alternatives were discussed with the patient, the patient agreed to proceed with the procedure and signed the consent. IV was started. Vital signs remained stable throughout the procedure. Patient was taken to the OR and time out was completed. The patient was placed in the prone position on the procedure table. The lumber area was prepped and draped in the usual sterile fashion. . Vital signs were closely monitored during the procedure .IV sedation was used during the procedure to decrease patients anxiety. The target points were identified as follows: For the L5-S1 level which corresponds to the dorsal ramus of L5 the target point was at the superior medial aspect of the sacral ala on the left side of the spine on the AP view of fluoroscopy and for the L2, L3, and L4 medial branches the target points were at the connection between the transverse process and the superior articular process of L3, L4, and L5 vertebra respectively on the left oblique view of fluoroscopy. skin was marked, and localized with 1% lidocaineat these points. Subsequently, an 18 -kw radiofrequency needles with a 10-mm curved active tips were advanced guided by fluoroscopy to each of the target points mentioned above in a superior medial direction to get the active tips as parallel as possible to the medial branches tracks. Each level then underwent motor testing at 2.5 Hz and 0 to 3 volt with local stimulation, but no radicular symptoms down the legs. Thereafter radiofrequency thermocoagulation at 80 degrees celsius for 90 seconds after injecting 1 ml of PF Marcaine 0.25%( 3 mls) with 40 mg of Kenalog. During the ablation the patient Upham some pain in her left leg that statyed above her knee and that's why I stopped doing the ablation on the L2 and L3 medial branches and instead of the and I did pulsed radiofrequency ablation on these 2 medial branches to be extra cautious . At the end of the procedure, the skin was cleansed and bandages were applied. COMPLICATIONS: No acute complications. DISPOSITION / PLANS: The patient was placed in a supine position and transferred to the recovery area in a stable condition for observation and was discharged from the recovery room after meeting discharge criteria. Home discharge instructions given to the patient by the staff. The patient was reexamined prior to discharge. The patient will schedule a follow up in the clinic in 2-4 weeks. Postoperative Diagnosis: Procedure(s) Performed: Implants: Indications for Procedure: Operative Findings: Description of Procedure:
[2017-07-19 13:36] VITALS: BP 121/75; PULSE 81
== END ==
LOC: ORPAIN 11:21
DX: M47.816 Spondylosis without myelopathy or radiculopathy, lumbar region (principal); E66.01 Morbid (severe) obesity due to excess calories; M46.96 Unspecified inflammatory spondylopathy, lumbar region; Z91.041 Radiographic dye allergy status
CPT/HCPCS: 64635; 64636; 99152; 99153; J2250; J3301; J3010

== ENCOUNTER → 2017-07-23 | Outpatient (CLI) | payer MEDICAID ==
[2017-07-23 12:36] VITALS: BP 141/78; PULSE 73; RESP 16; TEMP 97.6
--- NOTE | 2017-07-23 12:59 | P.PN ---
Subjective This is follow-up visit for this 42-year-old female with a chronic history of severe low back pain, diagnosed with lumbar spondylosis with done diagnostic medial branch block which was positive on the followed with radiofrequency ablation of the medial branch lumbar area, patient reported that she had more than 70% decrease in her pain after the radiofrequency, he is currently using Tylenol 3 when necessary for breakthrough pain, she is getting the prescription from her primary care, as well as any side effect of the medication she denies any motor or sensory deficits, and she reported the current medication is helping her to control her pain, she had side effects from the ultram , she had the headache, this reason , from was stopped and she was started on Tylenol 3, patient will be following up in the pain clinic on when necessary Objective - Vital Signs Vital signs: Vital Signs Temp 97.6 F 07/23/17 12:29 Pulse 73 07/23/17 12:29 Resp 16 07/23/17 12:29 BP 141/78 07/23/17 12:29 Pulse Ox Intake & Output 07/22/17 07/23/17 07/23/17 18:59 06:59 18:59 Weight 145.15 kg
== END ==
LOC: PNWHC3 12:14
PROVIDERS: ATTEND Specialist
DX: M47.816 Spondylosis without myelopathy or radiculopathy, lumbar region (principal); Z79.899 Other long term (current) drug therapy
CPT/HCPCS: 99211

== ENCOUNTER → 2019-03-10 | Outpatient (CLI) | payer OTHER ==
[2019-03-10 11:44] LABS: HCT 45.6 % (34.0-46.0); HGB 15.5 gm/dL (11.4-16.0); MCH 30.4 pg (25.0-35.0); MCV 89.4 fL (80.0-100.0); Mean Platelet Volume 7.4; Platelet Count 313 k/uL (150-450); RBC 5.09 m/uL (3.80-5.40); RDW 13.6 % (11.5-15.5); WBC 6.6 k/uL (3.8-10.6)
[2019-03-10 12:00] LABS: ALT 48 U/L (9-52); AST 31 U/L (14-36); Albumin 4.5 g/dL (3.5-5.0); Alkaline Phosphatase 100 U/L (38-126); Anion Gap 9 mmol/L; Blood Urea Nitrogen 16 mg/dL (7-17); Calcium 9.5 mg/dL (8.4-10.2); Carbon Dioxide 27 mmol/L (22-30); Chloride 104 mmol/L (98-107); Cholesterol 197 mg/dL (<200); Glucose 103 mg/dL (74-99); HDL Cholesterol 38 mg/dL (40-60); LDL Cholesterol,Calculated 130 mg/dL (0-99); Potassium 4.4 mmol/L (3.5-5.1); Sodium 140 mmol/L (137-145); Total Bilirubin 0.6 mg/dL (0.2-1.3); Triglycerides 144 mg/dL (<150)
--- NOTE | 2019-03-12 14:39 | MM ---
Reason for exam: screening (asymptomatic). Last mammogram was performed 3 years and 1 month ago. History: Family history of breast cancer in paternal grandmother. Excisional biopsy of the left breast, 2013. Physical Findings: A clinical breast exam by your physician is recommended on an annual basis and results should be correlated with mammographic findings. MG 3D Screening Mammo W/Cad Bilateral CC and MLO view(s) were taken. Prior study comparison: February 23, 2016, bilateral MG 3d screening mammo w/cad. February 18, 2015, bilateral MG screening mammo w CAD. Previous mammotome biopsy in the left breast x 2. No significant changes when compared with prior studies. ASSESSMENT: Benign, BI-RAD 2 RECOMMENDATION: Routine screening mammogram of both breasts in 1 year.
== END | disposition home or self-care (01) ==
LOC: RADMAMWWP 10:49
PROVIDERS: ATTEND Internal Medicine
DX: Z12.31 Encounter for screening mammogram for malignant neoplasm of breast (principal); Z00.01 Encounter for general adult medical examination with abnormal findings
CPT/HCPCS: 36415; 77063; 77067; 80053; 80061; 85027

== ENCOUNTER → 2019-04-14 | Outpatient (CLI) | payer OTHER ==
[2019-04-14 14:07] VITALS: BP 131/89; PULSE 86; RESP 16
--- NOTE | 2019-04-14 14:42 | P.PAINPG ---
Subjective Progress Note Date: 04/14/19 this is a follow-up visit for this 44 years old female with a chronic history of severe low back pain, she is diagnosed with lumbar degenerative disc disease and lumbar spondylosis with lumbar facet arthropathy, 2 years ago we have done diagnostic medial branch block lumbar area which was positive later on was followed with radiofrequency ablation of the medial branch lumbar area, L3 to S1 , patient gets excellent pain relief after the radiofrequency ablation , and she had 0 pain for almost 2 years, recently she started having severe low back pain localized in the low back area, she denies any fever or night sweats she denies any motor or sensory deficit, and there is no change in the bowel movement or urination Physical Examinations : -Constitutional : Cooperative , not in acute distress . -HEENT : nech ; supple , no Lymphadenopathy , no Thyromegaly , :eyes , no icterus, no photophobia - musculoskeltal: normal gait . Lumber spine moter stegnth lower extremities ,thigh and legs 5/5 Right side , 5/5 Left side deep tendon reflexes : normal Knee Jerk , normal ankle Jerk positive lumber facet Loading Test Range of motion of the lumbar spine Flexion 45 degrees, extension 10 degrees strait leg raising test negative bilaterally Fabere test negative bilaterally lumbar spine x-ray series done on 03/23/2017 at [facility]= multilevel lumbar facet arthropathy, multilevel lumbar degenerative disc disease. Prior level lumbar spine= done 01/16/2017 at [facility]= mild disc desiccation at L3 to S1 , posterior annular fissure at right-sided L5-S1 And there is facet arthropathy in the lower part of the lumbar spine Assessment and plan = - Chronic low back pain secondary to lumbar degenerative disc disease , lumbar spondylosis with facet arthropathy without myelopathy , - patient had excellent pain relief for almost 2 years after radiofrequency ablation of the medial branch lumbar area, she will be good candidate for repeat radiofrequency ablation of the medial branch L3 4, L4 5, L5-S1 we will do a left side first then we'll do the right centimeter Objective - Vital Signs Vital signs: Vital Signs Temp Pulse 86 04/14/19 13:56 Resp 16 04/14/19 13:56 BP 131/89 04/14/19 13:56 Pulse Ox Intake & Output 04/13/19 04/14/19 04/14/19 18:59 06:59 18:59 Weight 139.706 kg PQRS Measure Charge Sheet Measure #130: Documentation of Current Meds in Medical Chart: Patient's medications documented in chart Measure #226: Tobacco Use: Screen & Cessation Intervention: Pt not a tobacco user Measure #111: Pneumonia Vaccination: Pneumococcal vaccine NOT administered or previously given Measure #47: Advance Care Plan: Advance care planning discussed & documented, pt chose/unable to give Measure #412: Opioid Treatment Agreement: No documentation of signed opioid treatment agreement Measure #408: Opioid Therapy Follow-up Evaluation: Patient had NO f/u eval minimum every 3 months during opioid therapy Measure #317: Preventitive Care & Scrn High Bld Press & F/U: Normal blood pressure, f/u not required Measure #128: Body Mass Index (BMI) Screening & Follow-up: BMI documented ABOVE normal parameters - f/u documented Measure #131: Pain Assessment & Follow-up: Pain positive & plan documented, Follow-up scheduled Measure #431: Unhealthy Alcohol Use Preventative Care & Scrn: Patient not identified as an unhealthy alcohol user PQRS Narrative: Smoking Status Former smoker Do You Want the Pneumonia No Vaccine AT THIS TIME? Blood Pressure 131/89 Pain Intensity [Bilateral 2 Lower Back] Scale Used Numeric (1 - 10) Hx Alcohol Use (MH) No Home Medications: Ambulatory Orders No Known Home Medications 04/14/19 Controlled Substance Measures - Controlled Substance Measures Is patient prescribed a controlled substance at discharge?: No
== END | disposition home or self-care (01) ==
LOC: PNWHC3 13:32
PROVIDERS: ATTEND Specialist
DX: G89.29 Other chronic pain (principal); M51.36 Other intervertebral disc degeneration, lumbar region; M47.816 Spondylosis without myelopathy or radiculopathy, lumbar region; M46.96 Unspecified inflammatory spondylopathy, lumbar region; Z87.891 Personal history of nicotine dependence; Z98.890 Other specified postprocedural states
CPT/HCPCS: 99211

== ENCOUNTER 2019-04-28 08:04 | Day surgery (SDC) | payer OTHER ==
[2019-04-24 15:05] VITALS: BMI 42.9
[2019-04-28 08:17] VITALS: RESP 18; TEMP 97.1
[2019-04-28] MEDS ORDERED: LIDOCAINE 1% 20 ML VIAL (10MG/ML) FOR IV START INTRADERMA ONE (08:28)
[2019-04-28] MEDS ORDERED: LACTATED RINGERS 1,000 ML IV ONE (08:28)
--- NOTE | 2019-04-28 09:00 | P.PCN ---
Date of Procedure: 04/28/19 Description of Procedure: PREOPERATIVE DIAGNOSIS: Lumbar Facet Arthropathy. POSTOPERATIVE DIAGNOSIS: Lumbar Facet Arthropathy. PROCEDURES: Left Radiofrequency thermocoagulation of L3 4 4551 medial branches, with fluoroscopic guidance ANESTHESIA: IV sedation with versed and fentanyl and local infiltration with lidocaine 1% 10 ml PROCEDURE INDICATION: The patient with low back pain secondary to lumbar facet arthropathy who had more than 50% relief of pain with previous diagnostic lumbar medial branch block with local anesthetic. PROCEDURE DESCRIPTION / TECHNIQUE: The patient was seen and identified in the preoperative area. Patient is noted to have a large bruise over the right buttock area preoperative relief from a fall over the weekend. Risks, benefits, complications, including but not limited to risk of infection ,bleeding , allergic reactions to the medications and no complete pain relief , and alternatives were discussed with the patient, the patient agreed to proceed with the procedure and signed the consent. IV was started. Vital signs remained stable throughout the procedure. Patient was taken to the OR and time out was completed. The patient was placed in the prone position on the procedure table. The lumber area was prepped and draped in the usual sterile fashion. Vital signs were closely monitored during the procedure. IV sedation was used during the procedure to decrease patient anxiety. Using AP and then oblique fluoroscopy, the eye of the Zachary dog corresponding to the connection between the superior and transverse articular processes of L3, L4-L5, S1 were identified, marked, and localized with 1% lidocaine. Subsequently, a 20 [id number] radiofrequency cannula with a 10-mm active tip was advanced guided by fluoroscopy to the junction of the pedicle and transverse process of each identified level. Each site then underwent sensory testing at 50 Hz and 0 to 1 volt and motor testing at 2.5 Hz and 0 to 3 volt with local stimulation, no radicular symptoms sensed by the patient and no obvious motor stimulation noted. Thereafter the tested sites underwent radiofrequency thermocoagulation at 80 degrees celsius for 90 seconds after injecting 1 ml of PF lidocaine 1%. Then after the thermocoagulation was done, 1 ml of the block solution containing ropivaciane 0.5% was injected at the lesioned sites after negative aspiration of CSF and blood and with no paresthesias. Cannulas were retracted. At the end of the procedure, the skin was cleansed and bandages were applied. COMPLICATIONS: No acute complications. DISPOSITION / PLANS: The patient was placed in a supine position and transferred to the recovery area in a stable condition for observation and was discharged from the recovery room after meeting discharge criteria. Home discharge instructions given to the patient by the staff. The patient was reexamined prior to discharge. Patient will follow up in the clinic to determine if she needs to have the right side done.
[2019-04-28] MEDS ORDERED: IV FLUID CONTINUATION 1,000 ML IV ONE ×2 (09:07)
--- NOTE | 2019-04-28 09:16 | FL ---
Fluoroscopy HISTORY: Pain 6 seconds fluoroscopy time supplied to the referring clinician. 4 intraoperative C-arm images docume nt the procedure. See dictated report from anesthesia.
[2019-04-28 09:36] VITALS: BP 116/72; PULSE 72
== END 2019-04-28 09:42 | disposition home or self-care (01) ==
LOC: ORPAIN 08:04
PROVIDERS: ATTEND Hospitalist
DX: G89.29 Other chronic pain (principal); M47.816 Spondylosis without myelopathy or radiculopathy, lumbar region; M51.36 Other intervertebral disc degeneration, lumbar region; Z87.891 Personal history of nicotine dependence
CPT/HCPCS: 64635; 64636 ×2; J2250; J2001; J3010; 99152

== ENCOUNTER 2019-05-15 08:30 | Day surgery (SDC) | payer OTHER ==
[2019-05-15] MEDS ORDERED: LACTATED RINGERS 1,000 ML IV SCH (08:42)
[2019-05-15 08:53] VITALS: TEMP 97.6
--- NOTE | 2019-05-15 10:01 | P.PCN ---
Date of Procedure: 05/15/19 Procedure(s) Performed: PREOPERATIVE DIAGNOSIS: 1-Lumbar Spondylosis with Facet Arthropathy without myelopathy. POSTOPERATIVE DIAGNOSIS: 1- Lumbar Spondylosis with Facet Arthropathy without myelopathy. PROCEDURES : Right Radiofrequency thermocoagulation, L3-L4, L4-L5, and L5-S1 medial branch, with fluoroscopic guidance ANESTHESIA: Moderate sedation with intravenous versed 2 mg and fentaneyl 200 mcg, and local infiltration with Ropivacaine 0.5 % . EBL: Minimal PROCEDURE INDICATION: The patient with low back pain secondary to lumbar facet arthropathy who had more than 50% relief of her pain with previous diagnostic lumbar medial branch block with bupivacaine. PROCEDURE DESCRIPTION / TECHNIQUE: The patient was seen and identified in the preoperative area. Risks, benefits, complications, including but not limited to risk of infection ,bleeding , allergic reactions to the medications and no complete pain releife , and alternatives were discussed with the patient, the patient agreed to proceed with the procedure and signed the consent. IV was started. Vital signs remained stable throughout the procedure. Patient was taken to the OR and time out was completed. The patient was placed in the prone position on the procedure table. The lumber area was prepped and draped in the usual sterile fashion. . Vital signs were closely monitored during the procedure .IV sedation was used during the procedure to decrease patients anxiety. Using AP and then oblique fluoroscopy, the ``eye of the Zachary dog corresponding to the connection between the superior and transverse articular processes of right L3, L4, and L5 were identified, marked, and localized with 1% lidocaine. Subsequently, a 18 [id number] radiofrequency cannula with a 10- mm active tip was advanced guided by fluoroscopy to each of the``eyes of the Zachary dog at right L3, L4, and L5. Each site then underwent sensory testing at 50 Hz and 0 to 1 volt and motor testing at 2.5 Hz and 0 to 3 volt with local stimulation, but no radicular symptoms down the legs. Thereafter the right L3-4, L4-5, and L5-S1 sites underwent radiofrequency thermocoagulation at 80 degrees celsius for 90 seconds after injecting 0.5 ml of PF Ropivacaine 1ml, then after the thermocoagulation done , 1 ml of the block solution containing Depo-Medrol 40 mg and 3 ml of Ropivacaine 0.5% was injected at the right L3-4 , L4-5 , and L5-S1, levels after negative aspiration of CSF and blood and with no paresthesias. Cannulas were retracted while injecting lidocaine 1% until the needle is out. At the end of the procedure, the skin was cleansed and bandages were applied. COMPLICATIONS: No acute complications. DISPOSITION / PLANS: The patient was placed in a supine position and transferred to the recovery area in a stable condition for observation and was discharged from the recovery room after meeting discharge criteria. Home discharge instructions given to the patient by the staff. The patient was reexamined prior to discharge. The patient will schedule a follow up in the clinic in 2-4 weeks.
[2019-05-15 10:11] VITALS: RESP 18
[2019-05-15] MEDS ORDERED: IV FLUID CONTINUATION 1,000 ML IV ONE (10:28)
[2019-05-15 10:29] VITALS: BP 128/68; PULSE 68
--- NOTE | 2019-05-15 13:42 | FL ---
Fluoroscopy HISTORY: Pain 25 seconds fluoroscopy time supplied to the referring clinician. 3 intraoperative C-arm images docum ent the procedure. See dictated report from anesthesia.
== END 2019-05-15 10:40 | disposition home or self-care (01) ==
LOC: ORPAIN 08:30
PROVIDERS: ATTEND Specialist
DX: M47.816 Spondylosis without myelopathy or radiculopathy, lumbar region (principal); Z88.5 Allergy status to narcotic agent; Z91.041 Radiographic dye allergy status
CPT/HCPCS: 64635; 64636 ×2; J2250; J1030; J3010; 99152

== ENCOUNTER → 2019-07-30 | Outpatient (CLI) | payer OTHER ==
--- NOTE | 2019-08-01 04:42 | MR ---
EXAMINATION TYPE: MR knee RT wo con DATE OF EXAM: 07/30/2019 COMPARISON: None HISTORY: 44-year-old female with right knee pain TECHNIQUE: Multiplanar, multisequence imaging of the right knee is performed without IV contrast. FINDINGS: The ACL, PCL is intact. There is mild edema on either side of the intact MCL fibers. Some heterogeneity at the origin of the LCL proper as well as the popliteus tendon. LCL complex are o therwise intact. There is an elongated parameniscal cyst along the margin of the anterior horn of the lateral meniscus measuring 2.2 x 0.5 x 0.9 cm possibly arising from the anterior root. Some degenerative signal is no michelle within the posterior horn of the lateral meniscus. Mild generalized cartilage thinning within the medial compartment. Some inner margin fraying along the posterior horn of the medial meniscus and some scattered degenera tive signal within the meniscus. Moderate irregular cartilage loss along the mid weightbearing aspect of the medial compartment, particularly along the medial femoral condyle measuring 6 cm wide and 1.9 cm AP. Moderate irregular cartilage loss throughout the medial and lateral facets of the patella and additio nal moderate focal cartilage loss along the mid trochlea. There is very short superior aspect of the medial trochlear facet, axial image 13 suggesting possible component of trochlear dysplasia. Extensor mechanism is intact with mild prepatellar soft tissue swelling. Underlying moderate to large knee joint effusion without Villegas's cyst. The medial gutter is patulous but the medial patellofemoral ligament appears intact. There is a 9 mm chondral fragment noted within the medial gutter, axial image 16. In addition, there is focal bone bruise along the anteromedial lip of the tibial plateau with adjacen t soft tissue swelling. Normal popliteal artery anatomy. Mild generalized muscular atrophy. There is a 7 mm round lesion with in the distal femoral metaphysis that shows some chemical shift artifact and punctate densities withi n, suspected small enchondroma. No suspicious bone marrow replacement. IMPRESSION: 1. Grade 1 MCL sprain. 2. Some heterogeneity of the femoral attachment of the LCL proper suggests grade 1 sprain here as wel l. Popliteus tendinosis also noted. 3. Large bone bruise along the anteromedial lip of the tibial plateau with adjacent soft tissue swell ing. 4. An elongated 2.2 x 0.5 cm parameniscal cyst along the anterior horn of the lateral meniscus. This may be arising from a subtle partial tear at the anterior root. 5. Inner margin fraying of the posterior horn of the medial meniscus. 6. Moderate focal irregular cartilage loss along the weightbearing aspect of the medial compartment. 7. Mild to moderate overall patellofemoral compartment osteoarthrosis with a free-floating 9 mm long cartilage fragment in the medial gutter of the suprapatellar pouch. 8. Short superior aspect of the medial trochlear facet could represent a component of underlying troc hlear dysplasia. 9. Moderate to large knee joint effusion.
== END | disposition home or self-care (01) ==
LOC: RADMRIMAIN 07:57
PROVIDERS: ATTEND Orthopaedic Surgery Sports Medicine
DX: S83.411A Sprain of medial collateral ligament of right knee, initial encounter (principal); M23.041 Cystic meniscus, anterior horn of lateral meniscus, right knee; M79.89 Other specified soft tissue disorders; M94.8X6 Other specified disorders of cartilage, lower leg

== ENCOUNTER → 2020-08-18 | Outpatient (CLI) | payer OTHER ==
--- NOTE | 2020-08-18 11:19 | XR ---
EXAMINATION TYPE: XR wrist complete RT DATE OF EXAM: 08/18/2020 COMPARISON: 120 HISTORY: Pain TECHNIQUE: Four views submitted. FINDINGS: The osseous structures are intact. The joint spaces are preserved and there is no acute fracture or dislocation. IMPRESSION: 1. No definite acute fracture or dislocation if symptoms persist, follow-up study in 7 to 10 days wo uld be suggested. If symptoms persist consider MRI.
== END | disposition home or self-care (01) ==
LOC: RADXRMAIN 10:48
PROVIDERS: ATTEND Internal Medicine
DX: M25.531 Pain in right wrist (principal)

== ENCOUNTER 2021-06-04 | Emergency (ER) | payer OTHER | END 2021-06-05 00:50 | disposition home or self-care (01) ==

== ENCOUNTER 2021-06-05 11:11 | Emergency (ER) | payer OTHER ==
[2021-06-05 11:23] VITALS: TEMP 98.9
[2021-06-05] MEDS ORDERED: methylPREDNISolone SOD SUCCI 125 MG/2 ML VIAL IV STA (11:50)
[2021-06-05] MEDS ORDERED: SODIUM CHLORIDE 0.9% 1,000 ML IV STA (11:50)
[2021-06-05] MEDS ORDERED: diphenhydrAMINE 50 MG/ML 1 ML VIAL IVP STA (11:50)
[2021-06-05] MEDS ORDERED: FAMOTIDINE 20 MG/2 ML VIAL IV STA (11:50)
[2021-06-05] MEDS ORDERED: KETOROLAC 15 MG/ML 1 ML VIAL IVP STA (11:50)
[2021-06-05] MEDS ORDERED: AMPICILLIN-SULBACTAM 3 GM in SODIUM CHLORIDE 0.9% 100 ML IVPB STA (11:51)
--- NOTE | 2021-06-05 12:30 | ED ---
General Adult HPI - General Chief complaint: Dental/Oral Stated complaint: revisit - facial swelling, trouble swallowing Time Seen by Provider: 06/05/21 11:25 Source: patient, RN notes reviewed Mode of arrival: ambulatory Limitations: no limitations - History of Present Illness Initial comments: 46-year-old female presents to the emergency room for dental swelling and pain. Patient has had this swelling for the past 2 days however it has worsened sig nificantly this morning. Patient reports she started on clindamycin in the ER about a little less than 12 hours ago but the symptoms have worsened and not improved as she reports that the swelling is making it hard for her to swallow. However patient is noted to have no distress, no drooling trismus or tripoding. Denies fevers. Denies neck stiffness.Patient has no other complaints at this time including shortness of breath, chest pain, abdominal pain, nausea or vomiting, headache, or visual changes. - Related Data Previous Rx's Medication Instructions Recorded HYDROcodone/APAP 7.5-325MG [[place] 1 tab PO Q4H PRN 3 Days #18 tab 06/05/21 7.5-325] Ibuprofen [Motrin] 800 mg PO Q6HR #30 tab 06/05/21 Penicillin V Potassium [Pen Vee K] 500 mg PO Q6H 10 Days #40 tablet 06/05/21 Allergies Allergy/AdvReac Type Severity Reaction Status Date / Time Iodinated Contrast Media Allergy Rash/Hives Verified 06/05/21 11:23 tramadol AdvReac Unknown Verified 06/05/21 11:23 Review of Systems ROS Statement: Those systems with pertinent positive or pertinent negative responses have been documented in the HPI. ROS Other: All systems not noted in ROS Statement are negative. Past Medical History Past Medical History: Musculoskeletal Disorder Additional Past Medical History / Comment(s): pain lower lumbar,sacral spine History of Any Multi-Drug Resistant Organisms: None Reported Past Surgical History: Bladder Surgery, Cholecystectomy, Hysterectomy Additional Past Surgical History / Comment(s): BLADDER SUSPENSION, ENDOMETRIOSIS SURGERY Past Anesthesia/Blood Transfusion Reactions: Previous Problems w/ Anesthesia, Family Hisory of Malignant Hyperthermia Additional Past Anesthesia/Blood Transfusion Reaction / Comment(s): pt states experiences decrease b/p following anesthesia,. mother hx malignant hyperthermia-patient has never had this problem Past Psychological History: No Psychological Hx Reported Smoking Status: Former smoker Past Alcohol Use History: Occasional Past Drug Use History: None Reported - Past Family History Mother Family Medical History: Deep Vein Thrombosis (DVT) General Exam Limitations: no limitations General appearance: alert, in no apparent distress (In no distress. No tripoding, drooling.) Head exam: Present: atraumatic, normocephalic, normal inspection Eye exam: Present: normal appearance, PERRL, EOMI. Absent: scleral icterus, conjunctival injection, periorbital swelling ENT exam: Present: mucous membranes moist. Absent: normal oropharynx (Patient has edema noted of the left mandibular region. No sublingual edema. Tenderness noted to tooth 19 and 20. No abscess identified superficially.) Neck exam: Present: normal inspection, full ROM. Absent: tenderness, meningismus, lymphadenopathy Respiratory exam: Present: normal lung sounds bilaterally. Absent: respiratory distress, wheezes, rales, rhonchi, stridor Cardiovascular Exam: Present: regular rate, normal rhythm, normal heart sounds. Absent: systolic murmur, diastolic murmur, rubs, gallop, clicks GI/Abdominal exam: Present: soft, normal bowel sounds. Absent: distended, tenderness, guarding, rebound, rigid Course Vital Signs 06/05/21 11:20 Temperature 98.9 F Pulse Rate 88 Respiratory 16 Rate Blood Pressure 164/112 O2 Sat by Pulse 97 Oximetry Medical Decision Making - Medical Decision Making Vitals are stable. Patient initially hypertensive likely secondary to pain. Patient is well-appearing. She does not have any trismus, drooling, tripoding, or respiratory distress. She does have some swelling noted to the mandibular area however no obvious abscess. CBC CMP unremarkable. White blood cell count is 7. CT soft tissue neck with contrast shows a possible flagmen adjacent to the mandible difficult to exclude small abscess. As documented, there is no area for drainage of the abscess. Patient was given a dose of IV antibiotics. She was given pain medication and had significant permanent symptoms. On reeva luation she is sleeping and resting comfortably. I will re-prescribe her antibiotic as it was sent to a pharmacy that is close for the weekend. She has an appointment with her dentist in 2 days. She will return here for any worsening symptoms. - Lab Data Result diagrams: 06/05/21 12:07 06/05/21 12:07 Lab Results 06/05/21 06/05/21 06/05/21 Range/Units 12:07 12:07 12:07 WBC 7.0 (3.8-10.6) k/uL RBC 4.69 (3.80-5.40) m/uL Hgb 14.9 (11.4-16.0) gm/dL Hct 43.5 (34.0-46.0) % MCV 92.7 (80.0-100.0) fL MCH 31.7 (25.0-35.0) pg MCHC 34.2 (31.0-37.0) g/dL RDW 12.3 (11.5-15.5) % Plt Count 226 (150-450) k/uL MPV 7.3 Neutrophils % 64 % Lymphocytes % 25 % Monocytes % 7 % Eosinophils % 2 % Basophils % 1 % Neutrophils # 4.4 (1.3-7.7) k/uL Lymphocytes # 1.7 (1.0-4.8) k/uL Monocytes # 0.5 (0-1.0) k/uL Eosinophils # 0.2 (0-0.7) k/uL Basophils # 0.0 (0-0.2) k/uL Sodium 140 (137-145) mmol/L Potassium 4.2 (3.5-5.1) mmol/L Chloride 103 (98-107) mmol/L Carbon Dioxide 31 H (22-30) mmol/L Anion Gap 6 mmol/L BUN 13 (7-17) mg/dL Creatinine 0.74 (0.52-1.04) mg/dL Est GFR (CKD-EPI)AfAm >90 (>60 ml/min/1.73 sqM) Est GFR (CKD-EPI)NonAf >90 (>60 ml/min/1.73 sqM) Glucose 101 H (74-99) mg/dL Plasma Lactic Acid Maurizio 1.2 (0.7-2.0) mmol/L Calcium 8.9 (8.4-10.2) mg/dL Total Bilirubin 0.3 (0.2-1.3) mg/dL AST 40 H (14-36) U/L ALT 29 (4-34) U/L Alkaline Phosphatase 92 (38-126) U/L Total Protein 7.5 (6.3-8.2) g/dL Albumin 4.2 (3.5-5.0) g/dL Disposition Clinical Impression: Pain, dental Disposition: HOME SELF-CARE Condition: Good Instructions (If sedation given, give patient instructions): Dental Abscess (ED) Additional Instructions: Take Motrin and Tylenol for pain. If pain is severe take Tylenol [address] operate machinery while taking this. Take antibiotic as directed. Follow-up with your dentist at your appointment on Sunday. Return to the emergency room for any worsening symptoms. Prescriptions: Penicillin V Potassium [Pen Vee K] 500 mg PO Q6H 10 Days #40 tablet Is patient prescribed a controlled substance at d/c from ED?: No Referrals: Kaela Garcia MD [Primary Care Provider] - 1-2 days Time of Disposition: 14:38
[2021-06-05 12:48] LABS: Basophils % (A) 1 %; Eosinophils # (A) 0.2 k/uL (0-0.7); Eosinophils % (A) 2 %; HCT 43.5 % (34.0-46.0); HGB 14.9 gm/dL (11.4-16.0); Lymphocytes # (A) 1.7 k/uL (1.0-4.8); Lymphocytes % (A) 25 %; MCH 31.7 pg (25.0-35.0); MCHC 34.2 g/dL (31.0-37.0); MCV 92.7 fL (80.0-100.0); Mean Platelet Volume 7.3; Monocytes # (A) 0.5 k/uL (0-1.0); Monocytes % (A) 7 %; Neutrophils # (A) 4.4 k/uL (1.3-7.7); Neutrophils % (A) 64 %; Platelet Count 226 k/uL (150-450); RBC 4.69 m/uL (3.80-5.40); RDW 12.3 % (11.5-15.5)
[2021-06-05 12:59] LABS: ALT 29 U/L (4-34); AST 40 U/L (14-36); African American GFR (CKD) >90 (>60 ml/min/1.73 sqM); Albumin 4.2 g/dL (3.5-5.0); Alkaline Phosphatase 92 U/L (38-126); Anion Gap 6 mmol/L; Blood Urea Nitrogen 13 mg/dL (7-17); Calcium 8.9 mg/dL (8.4-10.2); Carbon Dioxide 31 mmol/L (22-30); Chloride 103 mmol/L (98-107); Glucose 101 mg/dL (74-99); Non-African American GFR(CKD) >90 (>60 ml/min/1.73 sqM); Potassium 4.2 mmol/L (3.5-5.1); Sodium 140 mmol/L (137-145); Total Bilirubin 0.3 mg/dL (0.2-1.3); Total Protein 7.5 g/dL (6.3-8.2)
--- NOTE | 2021-06-05 14:20 | CT ---
EXAMINATION TYPE: CT soft tissue neck w con DATE OF EXAM: 06/05/2021 1:09 PM COMPARISON: None HISTORY: Facial swelling, difficulty swallowing CT DLP: 446.5 mGycm Automated exposure control for dose reduction was used. CONTRAST: CT scan of the neck is performed following with IV Contrast, patient injected with 100 mL of Isovue 3 00. Axial images are obtained, coronal and sagittal reformatted images are reviewed. FINDINGS: Soft tissue swelling is noted anterior to the mandible on the left, there may be a phlegmon or local fluid collection present. Airway: No gross abnormality seen. Parotid/submandibular glands: No gross abnormality seen. Carotid/Vascular Structures: Unremarkable enhancement. Osseous Structures: Degenerative disc changes are present visualized spine. Other: IMPRESSION: Possible phlegmon adjacent to the mandible, difficult to exclude small abscess.
[2021-06-05] MEDS ORDERED: ACET/COD 300 MG/30 MG STARTER PACK 6 TAB BTL PO STA (14:39)
[2021-06-05 14:52] VITALS: BP 127/76; PULSE 78; RESP 18
== END 2021-06-05 15:02 | disposition home or self-care (01) ==
LOC: EC 11:11
DX: K08.89 Other specified disorders of teeth and supporting structures (principal); R22.0 Localized swelling, mass and lump, head; R13.10 Dysphagia, unspecified; Z87.891 Personal history of nicotine dependence; Z88.5 Allergy status to narcotic agent; Z88.8 Allergy status to other drugs, medicaments and biological substances; Z88.6 Allergy status to analgesic agent
CPT/HCPCS: 99284; 36415; 80053; 83605; 85025; 87040; 70491; 96365; 96375; J1200; J2930; J0295; J1885; Q9967

== ENCOUNTER 2021-06-07 17:45 | Emergency (ER) | payer OTHER ==
[2021-06-07 18:03] VITALS: RESP 16
[2021-06-07 18:57] VITALS: TEMP 98.6
[2021-06-07] MEDS ORDERED: SODIUM CHLORIDE 0.9% 1,000 ML IV STA (19:06)
--- NOTE | 2021-06-07 19:13 | ED ---
Dizziness HPI - General Chief Complaint: Dizziness Stated Complaint: Revisit/Low BP/Dizziness Source: patient, family, RN notes reviewed Mode of arrival: wheelchair Limitations: no limitations - History of Present Illness Initial Comments: 46-year-old female, alert and oriented 4, presents to the emergency room with complaints of feeling lightheaded since last night. Patient states that she was here twice over the weekend for a tooth abscess and prescribed antibiotics and T ylenol 3. Patient states she took her last Tylenol 3 today but has been feeling lightheaded since last night. Patient states that she was at the dentist office today and was told that the abscess was too big for him to do anything and to continue her antibiotics. She states that she is taking Pen-Vee K since Sunday. She states that she's had nausea but no vomiting. She denies any fevers. She thinks that her blood pressure is very low and she is concerned that the infection is now in her blood. Her mother is at bedside and drove her to the hospital. MD Complaint: lightheadedness -: days(s) (1) Timing: gradual onset Description: lightheadedness, nausea History of Same: No History of Trauma: No Improves With: nothing Worsens With: movement - Related Data Previous Rx's Medication Instructions Recorded HYDROcodone/APAP 7.5-325MG [[place] 1 tab PO Q4H PRN 3 Days #18 tab 06/05/21 7.5-325] Ibuprofen [Motrin] 800 mg PO Q6HR #30 tab 06/05/21 Penicillin V Potassium [Pen Vee K] 500 mg PO Q6H 10 Days #40 tablet 06/05/21 Allergies Allergy/AdvReac Type Severity Reaction Status Date / Time Iodinated Contrast Media Allergy Rash/Hives Verified 06/07/21 20:53 tramadol AdvReac Unknown Verified 06/07/21 20:53 Review of Systems ROS Statement: Those systems with pertinent positive or pertinent negative responses have been documented in the HPI. ROS Other: All systems not noted in ROS Statement are negative. Past Medical History Past Medical History: Musculoskeletal Disorder Additional Past Medical History / Comment(s): pain lower lumbar,sacral spine History of Any Multi-Drug Resistant Organisms: None Reported Past Surgical History: Bladder Surgery, Cholecystectomy, Hysterectomy Additional Past Surgical History / Comment(s): BLADDER SUSPENSION, ENDOMETRIOSIS SURGERY Past Anesthesia/Blood Transfusion Reactions: Previous Problems w/ Anesthesia, Family Hisory of Malignant Hyperthermia Additional Past Anesthesia/Blood Transfusion Reaction / Comment(s): pt states experiences decrease b/p following anesthesia,. mother hx malignant h yperthermia-patient has never had this problem Past Psychological History: No Psychological Hx Reported Smoking Status: Former smoker Past Alcohol Use History: Occasional Past Drug Use History: None Reported - Past Family History Mother Family Medical History: Deep Vein Thrombosis (DVT) General Exam Limitations: no limitations General appearance: alert, in no apparent distress Head exam: Present: atraumatic, normocephalic, normal inspection, other (Left- sided facial swelling with left lower tooth #18 infection) Eye exam: Present: normal appearance, PERRL, EOMI. Absent: scleral icterus, conjunctival injection, periorbital swelling Pupils: Present: normal accommodation ENT exam: Present: normal exam, normal oropharynx, mucous membranes moist Neck exam: Present: normal inspection, full ROM. Absent: tenderness, meningismus, lymphadenopathy, thyromegaly Respiratory exam: Present: normal lung sounds bilaterally. Absent: respiratory distress, wheezes, rales, rhonchi, stridor Cardiovascular Exam: Present: regular rate, normal rhythm, normal heart sounds. Absent: systolic murmur, diastolic murmur, rubs, gallop, clicks GI/Abdominal exam: Present: soft, normal bowel sounds. Absent: distended, tenderness, guarding, rebound, rigid Extremities exam: Present: normal inspection, full ROM, normal capillary refill. Absent: tenderness, pedal edema, joint swelling, calf tenderness Back exam: Present: normal inspection, full ROM. Absent: tenderness, CVA tenderness (R), CVA tenderness (L), muscle spasm, paraspinal tenderness, vertebral tenderness, rash noted Neurological exam: Present: alert, oriented X3, CN II-XII intact Expanded Patient oriented to: Present: person, place, time Speech: Present: fluid speech Cranial nerves: EOM's Intact: Normal, Gag Reflex: Normal, Tongue Deviation: Normal, Facial Sensation: Normal Cerebellar function: Finger to Nose: Normal Eye Response: (4) open spontaneously Motor Response: (6) obeys commands Verbal Response: (5) oriented Psychiatric exam: Present: normal affect, normal mood Skin exam: Present: warm, dry, intact, normal color. Absent: rash, cyanosis, diaphoretic, erythema, petechiae, pallor, mottled Course Vital Signs 06/07/21 06/07/21 06/07/21 18:01 18:55 18:57 Temperature 97.5 F L 98.6 F Pulse Rate 8 L 81 Respiratory 16 16 Rate Blood Pressure 118/60 117/71 O2 Sat by Pulse 99 97 Oximetry 06/07/21 06/07/21 19:33 21:47 Temperature Pulse Rate 73 85 Respiratory 16 16 Rate Blood Pressure 116/71 134/87 O2 Sat by Pulse 96 100 Oximetry EKG Findings - EKG Results: EKG: sinus rhythm (Ventricular rate of 71, irritable 0.148, QRS of 0.90, QTC of 0.425) Medical Decision Making - Medical Decision Making WBC count 7.8, hemoglobin and hematocrit is 14 and 44 respectively, glucose is 106 BUN is 20. Chest x-ray shows no acute cardiopulmonary process, osseous structures are intact. Patient has been afebrile, no nausea or vomiting in the emergency room. EKG is within normal limits with no ST elevation, she was given 1 L of normal saline. She has no focal neurological deficits. No trismus or meningismus. Patient directed to continue taking her antibiotics as prescribed and follow-up with her primary care doctor in 1 week and return to the emergency room with worsening symptoms including fever, difficulty in breathing or swallowing or opening mouth. Case discussed with Dr. Benavides - Lab Data Result diagrams: 06/07/21 19:20 06/07/21 19:20 Lab Results 06/07/21 06/07/21 06/07/21 Range/Units 19:20 19:20 19:20 WBC 7.8 (3.8-10.6) k/uL RBC 4.69 (3.80-5.40) m/uL Hgb 14.7 (11.4-16.0) gm/dL Hct 44.1 (34.0-46.0) % MCV 94.1 (80.0-100.0) fL MCH 31.3 (25.0-35.0) pg MCHC 33.3 (31.0-37.0) g/dL RDW 13.1 (11.5-15.5) % Plt Count 248 (150-450) k/uL MPV 7.5 Neutrophils % 51 % Lymphocytes % 38 % Monocytes % 6 % Eosinophils % 1 % Basophils % 1 % Neutrophils # 4.0 (1.3-7.7) k/uL Lymphocytes # 3.0 (1.0-4.8) k/uL Monocytes # 0.5 (0-1.0) k/uL Eosinophils # 0.1 (0-0.7) k/uL Basophils # 0.1 (0-0.2) k/uL Sodium 142 (137-145) mmol/L Potassium 4.0 (3.5-5.1) mmol/L Chloride 102 (98-107) mmol/L Carbon Dioxide 33 H (22-30) mmol/L Anion Gap 7 mmol/L BUN 20 H (7-17) mg/dL Creatinine 0.86 (0.52-1.04) mg/dL Est GFR (CKD-EPI)AfAm >90 (>60 ml/min/1.73 sqM) Est GFR (CKD-EPI)NonAf 81 (>60 ml/min/1.73 sqM) Glucose 106 H (74-99) mg/dL Plasma Lactic Acid Maurizio (0.7-2.0) mmol/L Calcium 8.7 (8.4-10.2) mg/dL Total Bilirubin 0.1 L (0.2-1.3) mg/dL AST 29 (14-36) U/L ALT 25 (4-34) U/L Alkaline Phosphatase 78 (38-126) U/L Total Protein 7.0 (6.3-8.2) g/dL Albumin 3.7 (3.5-5.0) g/dL Urine Color Yellow Urine Appearance Cloudy H (Clear) Urine pH 7.0 (5.0-8.0) Ur Specific [place] 1.015 (1.001-1.035) Urine Protein Negative (Negative) Urine Glucose (UA) Negative (Negative) Urine Ketones Negative (Negative) Urine Blood Negative (Negative) Urine Nitrite Negative (Negative) Urine Bilirubin Negative (Negative) Urine Urobilinogen <2.0 (<2.0) mg/dL Ur Leukocyte Esterase Negative (Negative) Urine RBC 1 (0-5) /hpf Urine WBC 2 (0-5) /hpf Ur Squamous Epith Cells 8 H (0-4) /hpf Urine Bacteria Rare H (None) /hpf Urine Mucus Rare H (None) /hpf 06/07/21 Range/Units 19:20 WBC (3.8-10.6) k/uL RBC (3.80-5.40) m/uL Hgb (11.4-16.0) gm/dL Hct (34.0-46.0) % MCV (80.0-100.0) fL MCH (25.0-35.0) pg MCHC (31.0-37.0) g/dL RDW (11.5-15.5) % Plt Count (150-450) k/uL MPV Neutrophils % % Lymphocytes % % Monocytes % % Eosinophils % % Basophils % % Neutrophils # (1.3-7.7) k/uL Lymphocytes # (1.0-4.8) k/uL Monocytes # (0-1.0) k/uL Eosinophils # (0-0.7) k/uL Basophils # (0-0.2) k/uL Sodium (137-145) mmol/L Potassium (3.5-5.1) mmol/L Chloride (98-107) mmol/L Carbon Dioxide (22-30) mmol/L Anion Gap mmol/L BUN (7-17) mg/dL Creatinine (0.52-1.04) mg/dL Est GFR (CKD-EPI)AfAm (>60 ml/min/1.73 sqM) Est GFR (CKD-EPI)NonAf (>60 ml/min/1.73 sqM) Glucose (74-99) mg/dL Plasma Lactic Acid Maurizio 0.8 (0.7-2.0) mmol/L Calcium (8.4-10.2) mg/dL Total Bilirubin (0.2-1.3) mg/dL AST (14-36) U/L ALT (4-34) U/L Alkaline Phosphatase (38-126) U/L Total Protein (6.3-8.2) g/dL Albumin (3.5-5.0) g/dL Urine Color Urine Appearance (Clear) Urine pH (5.0-8.0) Ur Specific [place] (1.001-1.035) Urine Protein (Negative) Urine Glucose (UA) (Negative) Urine Ketones (Negative) Urine Blood (Negative) Urine Nitrite (Negative) Urine Bilirubin (Negative) Urine Urobilinogen (<2.0) mg/dL Ur Leukocyte Esterase (Negative) Urine RBC (0-5) /hpf Urine WBC (0-5) /hpf Ur Squamous Epith Cells (0-4) /hpf Urine Bacteria (None) /hpf Urine Mucus (None) /hpf Disposition Clinical Impression: Dental abscess Disposition: HOME SELF-CARE Condition: Fair Instructions (If sedation given, give patient instructions): Abscess (ED) Additional Instructions: Continue taking your antibiotics as prescribed, follow-up with the primary care doctor in 1 week and dentist as scheduled. Return to the emergency room with difficulty swallowing, fevers or difficulty opening mouth. Take Motrin and Tylenol as needed for pain. Is patient prescribed a controlled substance at d/c from ED?: No Referrals: Kaela Garcia MD [Primary Care Provider] - 1-2 days Time of Disposition: 21:35
[2021-06-07 19:28] LABS: Basophils # (A) 0.1 k/uL (0-0.2); Basophils % (A) 1 %; Eosinophils # (A) 0.1 k/uL (0-0.7); Eosinophils % (A) 1 %; HCT 44.1 % (34.0-46.0); HGB 14.7 gm/dL (11.4-16.0); Lymphocytes % (A) 38 %; MCH 31.3 pg (25.0-35.0); MCHC 33.3 g/dL (31.0-37.0); MCV 94.1 fL (80.0-100.0); Mean Platelet Volume 7.5; Monocytes # (A) 0.5 k/uL (0-1.0); Monocytes % (A) 6 %; Neutrophils % (A) 51 %; Platelet Count 248 k/uL (150-450); RBC 4.69 m/uL (3.80-5.40); RDW 13.1 % (11.5-15.5); WBC 7.8 k/uL (3.8-10.6)
[2021-06-07 19:48] LABS: ALT 25 U/L (4-34); AST 29 U/L (14-36); African American GFR (CKD) >90 (>60 ml/min/1.73 sqM); Albumin 3.7 g/dL (3.5-5.0); Alkaline Phosphatase 78 U/L (38-126); Anion Gap 7 mmol/L; Blood Urea Nitrogen 20 mg/dL (7-17); Calcium 8.7 mg/dL (8.4-10.2); Carbon Dioxide 33 mmol/L (22-30); Chloride 102 mmol/L (98-107); Glucose 106 mg/dL (74-99); Non-African American GFR(CKD) 81 (>60 ml/min/1.73 sqM); Sodium 142 mmol/L (137-145); Total Bilirubin 0.1 mg/dL (0.2-1.3)
--- NOTE | 2021-06-07 20:51 | XR ---
EXAMINATION TYPE: XR chest 2V DATE OF EXAM: 06/07/2021 COMPARISON: NONE HISTORY: Dizziness. TECHNIQUE: Frontal and lateral views of the chest are obtained. FINDINGS: There is no focal air space opacity, pleural effusion, or pneumothorax seen. The cardiac silhouette size is within normal limits. The osseous structures are intact. IMPRESSION: No acute cardiopulmonary process.
[2021-06-07] MEDS ORDERED: SODIUM CHLORIDE 0.9% 500 ML 500 ML IV ONE (21:21)
[2021-06-07] MEDS ORDERED: Acetaminophen-Codeine 300-30mg TAB PO STA (21:30)
[2021-06-07] MEDS ORDERED: IBUPROFEN 800 MG TAB PO STA (21:36)
[2021-06-07 21:48] VITALS: BP 134/87; PULSE 85
[2021-06-07 21:49] LABS: Appearance,Urine Cloudy (Clear); Bacteria,Urine Rare /hpf; Bilirubin,Urine Negative (Negative); Blood,Urine Negative (Negative); Color,Urine Yellow; Glucose,Urine (UA) Negative (Negative); Ketones,Urine Negative (Negative); Leukocyte Esterase,Urine Negative (Negative); Mucus,Urine Rare /hpf; Nitrite,Urine Negative (Negative); Protein,Urine Negative (Negative); RBC,Urine 1 /hpf (0-5); Specific Gravity,Urine 1.015 (1.001-1.035); Squamous Epithelial Cell,Urine 8 /hpf (0-4); Urobilinogen,Urine <2.0 mg/dL (<2.0); WBC,Urine 2 /hpf (0-5)
== END 2021-06-07 21:55 | disposition home or self-care (01) ==
LOC: EC 17:45
DX: K04.7 Periapical abscess without sinus (principal); R42 Dizziness and giddiness; Z87.891 Personal history of nicotine dependence; Z91.041 Radiographic dye allergy status; Z88.6 Allergy status to analgesic agent
CPT/HCPCS: 36415; 71046; 80053; 81001; 83605; 85025; 93005; 96360; 96361; 99284

== ENCOUNTER → 2022-05-10 | Outpatient (CLI) | payer OTHER ==
--- NOTE | 2022-05-12 07:51 | MM ---
Reason for Exam: Screening (asymptomatic). Last mammogram was performed 3 year(s) and 2 month(s) ago. Patient History: Menarche at age 9. First Full-Term at age 17. Right ovary removed at age 34. Hysterectomy at age 34. 2013, Excisional Biopsy on the Left side. Paternal grandmother had breast cancer under age 50. Risk Values: [place] 5 year model risk: 0.9%. NCI Lifetime model risk: 8.6%. Prior Study Comparison: 02/18/2015 Bilateral Screening Mammogram, [facility]. 02/23/2016 Bilateral Screening Mammogram, [facility]. 03/10/2019 Bilateral Screening Mammogram, [facility]. Tissue Density: There are scattered fibroglandular densities. Findings: Analyzed By CAD. There is no suspicious group of microcalcifications or new suspicious mass in either breast. Overall Assessment: Benign, BI-RAD 2 Management: Screening Mammogram of both breasts in 1 year. A clinical breast exam by your physician is recommended on an annual basis and results should be correlated with mammographic findings. Electronically signed and approved by: Malvin Bowers M.D. Radiologis
== END | disposition home or self-care (01) ==
LOC: RADMAMWWP 16:38
PROVIDERS: ATTEND Family Medicine
DX: Z08 Encounter for follow-up examination after completed treatment for malignant neoplasm (principal); Z80.3 Family history of malignant neoplasm of breast
CPT/HCPCS: 77063; 77067

== ENCOUNTER → 2022-06-23 | Outpatient (CLI) | payer OTHER ==
--- NOTE | 2022-06-24 03:07 | MR ---
EXAMINATION TYPE: MR lumbar spine wo con DATE OF EXAM: 06/23/2022 COMPARISON: 01/16/2017 HISTORY: Lower back pain, BLE radiculopathy Multiplanar multiecho imaging of the lumbar spine with no contrast. The lumbar vertebrae have normal alignment. There is mild uniform narrowing of disc spaces. Posterior elements are intact. No compression fracture. No evidence of lumbar disc herniation. No spinal steno sis. No lumbar paraspinal mass. The posterior elements are intact. The neural foramina are fairly wel l maintained. There is some minimal left-sided L4-5 neural foraminal narrowing compared to the right side but no significant neural foraminal stenosis. IMPRESSION: Mild multilevel degenerative disc changes. No fracture. No spinal stenosis. No significant change com pared to old exam.
== END | disposition home or self-care (01) ==
LOC: RADMRIMAIN 15:49
PROVIDERS: ATTEND Physician Assistant
DX: M43.06 Spondylolysis, lumbar region (principal); M51.36 Other intervertebral disc degeneration, lumbar region; M54.41 Lumbago with sciatica, right side
CPT/HCPCS: 72148

== ENCOUNTER → 2023-02-16 | Outpatient (CLI) | payer OTHER ==
[2023-02-16 10:28] VITALS: BP 132/87; PULSE 96; RESP 17; TEMP 97.9
--- NOTE | 2023-02-16 10:51 | P.GSHP ---
History of Present Illness H&P Date: 02/16/23 Chief Complaint: Right bloody nipple discharge Ita is a 47-year-old white female seen in consultation for Makeda LUIS regarding right nipple discharge which is ? bloody. She had a bilateral mammogram performed on which was benign BIRADS 2. Following the discharge she had a repeat right breast mammogram as well as right breast ultrasound performed. These did not reveal any lesions of concern on the mammogram and on the ultrasound of 5 mm cystic area was seen in the retroareolar region. These were done on . The patient has had bilateral nipple discharge for many years however recently from the right side she noted blood. He says occurred multiple times. It does occur spontaneously as well. It is not happening from the left side. She has had 2 lesions removed from the left breast in [place] in 2013, which were benign in the past. She has never had any surgery on the right breast. She is not complaining of any trauma or infection in her breast. Caffiene: 1 cup/day nicotine: none chocolate: occasional BCP: remote past 5 years Note 12-29-[address] Reina office reviewed Family History: paternal grandmother: bilateral breast cancer from this maternal grandfather: bone in jaw cancer, skin cancers Family history of malignant hyperthermia in her mother Hormonal History: menarche: 9 M3, breast fed: yes, age at first : 17 periods hysterectoy 2009 done for endometirosis, still has left ovary Surgical History: gallbladder endometriosis surgery burned areas, 5 times hysterectony and right ovary removed lower spine nerves burned bladder surgery Medical History: chronic back pain weight Social history: Nicotine: Negative Alcohol: Occasional Drugs: Marijuana occasional - Constitutional Constitutional: Denies chills, Denies fever - EENT Eyes: denies blurred vision, denies pain Ears: deny: decreased hearing, tinnitus Ears, nose, mouth and throat: Reports headache - Breasts Breasts: bilateral: as per HPI - Cardiovascular Cardiovascular: Denies chest pain, Denies shortness of breath - Respiratory Respiratory: Denies cough, Denies 7 - Gastrointestinal Gastrointestinal: Denies abdominal pain, Denies diarrhea, Denies nausea, Denies vomiting - Genitourinary (Female) Genitourinary: Denies dysuria, Denies hematuria - Menstruation Menstruation: Reports as per HPI - Musculoskeletal Comment: back pain Musculoskeletal: Denies myalgias - Integumentary Integumentary: Denies pruritus, Denies rash - Neurological Neurological: Reports as per HPI, Reports numbness, Reports weakness - Psychiatric Psychiatric: Denies anxiety, Denies depression - Endocrine Endocrine: Denies fatigue, Denies weight change - Hematologic/Lymphatic Comment: none - Allergic/Immunologic Allergic/Immunologic: Reports seasonal allergies Past Medical History Past Medical History: Musculoskeletal Disorder Additional Past Medical History / Comment(s): pain lower lumbar,sacral spine History of Any Multi-Drug Resistant Organisms: None Reported Past Surgical History: Bladder Surgery, Cholecystectomy, Hysterectomy Additional Past Surgical History / Comment(s): BLADDER SUSPENSION, ENDOMETRIOSIS SURGERY Past Anesthesia/Blood Transfusion Reactions: Previous Problems w/ Anesthesia, Family Hisory of Malignant Hyperthermia Additional Past Anesthesia/Blood Transfusion Reaction / Comment(s): pt states experiences decrease b/p following anesthesia,. mother hx malignant hyperthermia-patient has never had this problem Past Psychological History: No Psychological Hx Reported Smoking Status: Former smoker Past Alcohol Use History: Occasional Past Drug Use History: None Reported - Past Family History Mother Family Medical History: Deep Vein Thrombosis (DVT) Medications and Allergies Home Medications Medication Instructions Recorded Confirmed Type Acetaminophen-Codeine 300-30mg 1 tab PO DIRECTED PRN 02/16/23 02/16/23 History [Tylenol w/codeine #3] Liraglutide [Saxenda] 3 mg .ROUTE DAILY 02/16/23 02/16/23 History Allergies Allergy/AdvReac Type Severity Reaction Status Date / Time Iodinated Contrast Media Allergy Rash/Hives Verified 02/16/23 10:21 tramadol AdvReac Unknown Verified 02/16/23 10:21 Surgical - Exam - General no distress - Eyes normal ocular movement - Neck trachea midline - Respiratory normal respiratory effort - Cardiovascular Rhythm: regular Heart Sounds: normal: S1, S2 - Abdomen Abdomen: soft, non tender, no guarding, no rigid, no rebound - Integumentary normal turgor - Neurologic no disoriented, no combative - Musculoskeletal normal gait - Psychiatric oriented to time, oriented to person, oriented to place, speech is normal, memory intact Breast Exam: BRA: 44DD Inspection: Bilateral grade 2 ptosis Palpation: Right breast: Multi-positional exam fibrocystic changes, nipple discharge from the approximately 2 o'clock position of the nipple which is guaiac questionably positive No dominant masses or nodules of concern otherwise Right axilla: No adenopathy of concern Left breast: Multi-positional exam fibrocystic changes no nipple discharge on today's exam Left axilla: No adenopathy of concern Results Mammogram and ultrasound reviewed personally Assessment and Plan Assessment: Impression: Bilateral nipple discharge Bilateral fibrocystic breast changes Probable right nipple bloody discharge Recent right breast mammogram and ultrasound no discrete dominant masses or nodules of concern small cystic area behind right nipple areolar complex Last bilateral mammogram April 2022 which was BIRADS 2 Positive family history cancer Plan: Right duct exploration for bloody nipple discharge, possible optical plastic tissue transfer Risk and benefits of the procedure discussed with the patient. Risks include but are not limited to bleeding, infection, reaction to the anesthetic. Additionally she may have some decreased sensation to the nipple or some inversion of the nipple. She understands and wishes to proceed Cc: Makeda Juarez
== END ==
LOC: WWCWWP 10:14
PROVIDERS: ATTEND Surgery
DX: N60.11 Diffuse cystic mastopathy of right breast (principal); N64.9 Disorder of breast, unspecified; N60.12 Diffuse cystic mastopathy of left breast; N64.52 Nipple discharge; Z79.85 Long-term (current) use of injectable non-insulin antidiabetic drugs; Z87.891 Personal history of nicotine dependence; Z88.5 Allergy status to narcotic agent; Z88.8 Allergy status to other drugs, medicaments and biological substances; Z90.49 Acquired absence of other specified parts of digestive tract; Z90.721 Acquired absence of ovaries, unilateral; Z91.041 Radiographic dye allergy status

== ENCOUNTER → 2023-04-05 | Outpatient (CLI) | payer OTHER ==
[2023-04-05 14:56] VITALS: BP 125/87; PULSE 88; RESP 18; TEMP 98
--- NOTE | 2023-04-05 15:04 | P.PN ---
Subjective Progress Note Date: 04/05/23 Principal diagnosis: right breast bloody nipple discharge Right bloody nipple discharge Ita is a 47-year-old white female seen in consultation for Makeda LUIS regarding right nipple discharge which is ? bloody. She had a bilateral mammogram performed on which was benign BIRADS 2. Following the discharge she had a repeat right breast mammogram as well as right breast ultrasound performed. These did not reveal any lesions of concern on the mammogram and on the ultrasound of 5 mm cystic area was seen in the retroareolar region. These were done on . The patient has had bilateral nipple discharge for many years however recently from the right side she noted blood. This was checked in the office and is noted to be guaiac positive. She says this has occurred multiple times. It does occur spontaneously as well. It is not happening from the left side. She has had 2 lesions removed from the left breast in [place] in 2013, which were benign in the past. She has never had any surgery on the right breast. She is not complaining of any trauma or infection in her breast. Caffiene: 1 cup/day nicotine: none chocolate: occasional BCP: remote past 5 years Note 12-29-[address] Reina office reviewed Family History: paternal grandmother: bilateral breast cancer from this maternal grandfather: bone in jaw cancer, skin cancers Family history of malignant hyperthermia in her mother Hormonal History: menarche: 9 M3, breast fed: yes, age at first : 17 periods hysterectoy 2009 done for endometirosis, still has left ovary Surgical History: gallbladder endometriosis surgery burned areas, 5 times hysterectony and right ovary removed lower spine nerves burned bladder surgery Medical History: chronic back pain weight Social history: Nicotine: Negative Alcohol: Occasional Drugs: Marijuana occasional - Constitutional Constitutional: Denies chills, Denies fever - EENT Eyes: denies blurred vision, denies pain Ears: deny: decreased hearing, tinnitus Ears, nose, mouth and throat: Reports headache - Breasts Breasts: bilateral: as per HPI - Cardiovascular Cardiovascular: Denies chest pain, Denies shortness of breath - Respiratory Respiratory: Denies cough - Gastrointestinal Gastrointestinal: Denies abdominal pain, Denies diarrhea, Denies nausea, Denies vomiting - Genitourinary (Female) Genitourinary: Denies dysuria, Denies hematuria - Menstruation Menstruation: Reports as per HPI - Musculoskeletal Comment: back pain Musculoskeletal: Denies myalgias - Integumentary Integumentary: Denies pruritus, Denies rash - Neurological Neurological: Reports as per HPI, Reports numbness, Reports weakness - Psychiatric Psychiatric: Denies anxiety, Denies depression - Endocrine Endocrine: Denies fatigue, Denies weight change - Hematologic/Lymphatic Comment: none - Allergic/Immunologic Allergic/Immunologic: Reports seasonal allergies Past Medical History Past Medical History: Musculoskeletal Disorder Additional Past Medical History / Comment(s): pain lower lumbar,sacral spine History of Any Multi-Drug Resistant Organisms: None Reported Past Surgical History: Bladder Surgery, Cholecystectomy, Hysterectomy Additional Past Surgical History / Comment(s): BLADDER SUSPENSION, ENDOMETRIOSIS SURGERY Past Anesthesia/Blood Transfusion Reactions: Previous Problems w/ Anesthesia, Family Hisory of Malignant Hyperthermia Additional Past Anesthesia/Blood Transfusion Reaction / Comment(s): pt states experiences decrease b/p following anesthesia,. mother hx malignant hyperthermia-patient has never had this problem Past Psychological History: No Psychological Hx Reported Smoking Status: Former smoker Past Alcohol Use History: Occasional Past Drug Use History: None Reported - Past Family History Mother Family Medical History: Deep Vein Thrombosis (DVT) Medications and Allergies Home Medications Medication Instructions Recorded Confirmed Type Acetaminophen-Codeine 300-30mg 1 tab PO DIRECTED PRN 02/16/23 02/16/23 His tory [Tylenol w/codeine #3] Liraglutide [Saxenda] 3 mg .ROUTE DAILY 02/16/23 02/16/23 History Allergies Allergy/AdvReac Type Severity Reaction Status Date / Time Iodinated Contrast Media Allergy Rash/Hives Verified 02/16/23 10:21 tramadol AdvReac Unknown Verified 02/16/23 10:21 Objective - Constitutional General appearance: Present: cooperative - EENT Eyes: Present: EOMI ENT: Present: hearing grossly normal - Neck Neck: Present: normal ROM - Respiratory Respiratory: bilateral: CTA - Cardiovascular Rhythm: regular Heart sounds: normal: S1, S2 - Gastrointestinal General gastrointestinal: Present: soft - Integumentary Integumentary: Present: normal turgor - Musculoskeletal Musculoskeletal: Present: gait normal - Psychiatric Psychiatric: Present: A&O x's 3, appropriate affect, intact judgment & insight - Additional findings Additional findings: Breast Exam: BRA: 44DD Inspection: Bilateral grade 2 ptosis Palpation: Right breast: Multi-positional exam fibrocystic changes, nipple discharge from the approximately 2 o'clock position of the nipple which is guaiac questionably positive No dominant masses or nodules of concern otherwise Right axilla: No adenopathy of concern Left breast: Multi-positional exam fibrocystic changes no nipple discharge on today's exam of concern Left axilla: No adenopathy of concern Assessment and Plan Assessment: Impression: Bilateral nipple discharge Bilateral fibrocystic breast changes Probable right nipple bloody discharge Recent right breast mammogram and ultrasound no discrete dominant masses or nodules of concern small cystic area behind right nipple areolar complex Last bilateral mammogram April 2022 which was BIRADS 2 Positive family history cancer Plan: Right duct exploration for bloody nipple discharge, possible onco-plastic tissue transfer Risk and benefits of the procedure discussed with the patient. Risks include but are not limited to bleeding, infection, reaction to the anesthetic. Additionally she may have some decreased sensation to the nipple or some inversion of the nipple. She understands and wishes to proceed Cc: Makeda Juarez
== END ==
LOC: WWCWWP 13:37
PROVIDERS: ATTEND Surgery
DX: N60.11 Diffuse cystic mastopathy of right breast (principal); N60.12 Diffuse cystic mastopathy of left breast; Z80.3 Family history of malignant neoplasm of breast; N64.52 Nipple discharge; Z88.5 Allergy status to narcotic agent; Z91.041 Radiographic dye allergy status; Z87.891 Personal history of nicotine dependence

== ENCOUNTER 2023-04-17 07:28 | Day surgery (SDC) | payer OTHER ==
[2023-04-12 08:32] VITALS: BMI 39.0
[~2023-04-17 07:28] MED LIST changes: +DEXAMETHASONE SOD PHOSPHATE 4 MG/ML 1 ML VIAL IV ONE; +HEPARIN SODIUM,PORCINE/PF 5,000 UNIT/0.5 ML SYRINGE SQ PRN; -IV FLUID CONTINUATION 1,000 ML IV ONE; +LIDOCAINE 1% (10MG/ML) FOR IV START INTRADERMA PRN; -LIDOCAINE 1% 20 ML VIAL (10MG/ML) FOR IV START INTRADERMA ONE; +MIDAZOLAM 2 MG/2 ML VIAL IV PRN; +ONDANSETRON 4 MG/2 ML VIAL IVP ONE; +ceFAZolin 3 GM in SODIUM CHLORIDE 0.9% 100 ML IVPB PRN; -fentaNYL (PF) 50 MCG/ML 2 ML AMP IV ONE; -fentaNYL (PF) 50 MCG/ML 2 ML AMP IVP ONE
[2023-04-17 08:09] LABS: Basophils % (A) 1 %; Eosinophils # (A) 0.5 k/uL (0-0.7); Eosinophils % (A) 8 %; HCT 43.7 % (34.0-46.0); HGB 14.9 gm/dL (11.4-16.0); Lymphocytes # (A) 2.3 k/uL (1.0-4.8); Lymphocytes % (A) 38 %; MCH 31.1 pg (25.0-35.0); MCHC 34.2 g/dL (31.0-37.0); MCV 90.9 fL (80.0-100.0); Mean Platelet Volume 7.6; Monocytes # (A) 0.4 k/uL (0-1.0); Monocytes % (A) 7 %; Neutrophils # (A) 2.6 k/uL (1.3-7.7); Neutrophils % (A) 44 %; Platelet Count 267 k/uL (150-450); RDW 12.3 % (11.5-15.5)
[2023-04-17] MEDS ORDERED: KETAMINE 10 MG/ML 20 ML VIAL ONE (08:18)
[2023-04-17] MEDS ORDERED: GLYCOPYRROLATE 0.2 MG/ML 2 ML VIAL ONE (08:18)
[2023-04-17] MEDS ORDERED: PROPOFOL 10 MG/ML 20 ML VIAL IV ONE (08:18)
[2023-04-17] MEDS ORDERED: LIDOCAINE 2% INJ 20 MG/ML (2 ML VIAL) ONE (08:18)
[2023-04-17] MEDS ORDERED: ROCURONIUM 10 MG/ML (5 ML VIAL) IV ONE (08:18)
[2023-04-17] MEDS ORDERED: fentaNYL (PF) 50 MCG/ML 2 ML AMP ONE (08:18)
[2023-04-17] MEDS ORDERED: MIDAZOLAM 2 MG/2 ML VIAL ONE (08:18)
[2023-04-17] MEDS ORDERED: NEOSTIGMINE 1 MG/ML 10 ML VIAL ONE (08:18)
[2023-04-17 08:25] LABS: ALT 21 U/L (4-34); AST 23 U/L (14-36); African American GFR (CKD) >90 (>60 ml/min/1.73 sqM); Albumin 4.1 g/dL (3.5-5.0); Alkaline Phosphatase 88 U/L (38-126); Anion Gap 8 mmol/L; Blood Urea Nitrogen 16 mg/dL (7-17); Calcium 9.2 mg/dL (8.4-10.2); Carbon Dioxide 28 mmol/L (22-30); Chloride 104 mmol/L (98-107); Glucose 100 mg/dL (74-99); Non-African American GFR(CKD) >90 (>60 ml/min/1.73 sqM); Potassium 3.8 mmol/L (3.5-5.1); Sodium 140 mmol/L (137-145); Total Bilirubin 0.5 mg/dL (0.2-1.3); Total Protein 7.6 g/dL (6.3-8.2)
--- NOTE | 2023-04-17 09:27 | P.OP ---
Date of Procedure: 04/17/23 Preoperative Diagnosis: Right breast bloody nipple discharge Postoperative Diagnosis: Same Procedure(s) Performed: Right breast duct exploration, 0nc-plastic tissue transfer, 28cm2 Anesthesia: GETA Surgeon: Britney Gunter Estimated Blood Loss (ml): 7 IV fluids (ml): 300 Pathology: other (Breast tissue) Condition: stable Disposition: same day Indications for Procedure: Right breast bloody nipple discharge Operative Findings: Dense breast tissue Description of Procedure: The patient was brought to the operating room and following induction of anesthesia the right breast was prepped and draped in a sterile fashion. In the preoperative area bloody discharge was noted to be coming from the 2 o'clock position of the right nipple area. A circumareolar incision was made and carried down through the skin and subcutaneous tissue. This was in the superior-medial area of the areolar. The area of the duct of concern was grasped and dissected from under the nipple. This was dissected vertically down to the area of the pectoralis muscle. The core of tissue was removed. The area removed was approximately 5 x 2 cm. Following this the specimen was painted for orientation. After assured that hemostasis was attained titanium clips were placed. The superior patellar which was 4 x 3 cm was created. An inferior periareolar which was 3 x 2 cm was freed. This was a total of 28 cm of tissue transfer. Following this the deep tissues were brought together using 3-0 Vicryl suture. This was followed by subcutaneous closure using 3-0 Vicryl suture. A 4-0 subcuticular Monocryl suture was placed. Steri-Strips were applied. The patient tolerated the procedure in stable condition. All instrument and sponge counts were correct at the end of the case.
--- NOTE | 2023-04-17 09:32 | P.DS ---
Providers Attending physician: Britney Gunter Primary care physician: Suellen Reina Plan - Discharge Summary Discharge Rx Participant: No New Discharge Prescriptions: New HYDROcodone/APAP 5-325MG [[place] 5] 1 - 2 each PO Q6HR PRN #10 tab PRN Reason: Pain No Action Liraglutide [Saxenda] 3 mg .ROUTE DAILY Cetirizine HCl [Zyrtec] 10 mg PO DAILY Discharge Medication List Liraglutide [Saxenda] 3 mg .ROUTE DAILY 02/16/23 [History] Cetirizine HCl [Zyrtec] 10 mg PO DAILY 04/05/23 [History] HYDROcodone/APAP 5-325MG [[place] 5] 1 - 2 each PO Q6HR PRN #10 tab 04/17/23 [Rx] Follow up Appointment(s)/Referral(s): Britney Gunter MD [STAFF PHYSICIAN] - 04/26/23 8:40 am Activity/Diet/Wound Care/Special Instructions: Do not drive if taking narcotic pain medicine Do not drive for 24 hours after discharge May shower after 48 hours Wear bra at all times Discharge Disposition: HOME SELF-CARE
[2023-04-17 09:48] VITALS: TEMP 97
[2023-04-17] MEDS: HYDROmorphone 0.5 MG/0.5 ML SYRINGE IVP PRN ×4 (09:48→10:35)
[2023-04-17] MEDS: fentaNYL (PF) 50 MCG/ML 2 ML AMP IV ONE ×2 (10:50→10:57)
[2023-04-17 11:42] VITALS: RESP 16
[2023-04-17] MEDS ORDERED: Acetaminophen-Codeine 300-30mg TAB ONE (11:58)
[2023-04-17] MEDS ORDERED: Acetaminophen-Codeine 300-30mg TAB PO ONE (11:59)
[2023-04-17] MEDS ORDERED: ONDANSETRON 4 MG/2 ML VIAL ONE (12:29)
[2023-04-17] MEDS ORDERED: ONDANSETRON 4 MG/2 ML VIAL IVP ONE (12:30)
[2023-04-17 12:57] VITALS: BP 114/77; PULSE 75
== END 2023-04-17 13:06 | disposition home or self-care (01) ==
LOC: OR 07:28
PROVIDERS: ATTEND Surgery
DX: N64.52 Nipple discharge (principal); N60.41 Mammary duct ectasia of right breast; G47.33 Obstructive sleep apnea (adult) (pediatric); E66.01 Morbid (severe) obesity due to excess calories; Z79.899 Other long term (current) drug therapy; Z68.39 Body mass index [BMI] 39.0-39.9, adult; Z90.710 Acquired absence of both cervix and uterus
CPT/HCPCS: 80053; 85025; 88305

== ENCOUNTER → 2023-04-26 | Outpatient (CLI) | payer OTHER ==
[2023-04-26 09:05] VITALS: BP 120/84; PULSE 94; RESP 17; TEMP 98.8
--- NOTE | 2023-04-26 09:19 | P.PN ---
Progress Note - Text Progress Note Date: 04/26/23 The patient on 04-17-23 underwent a right duct exploration. The tissue was benign. She tolerated the procedure in stable condition. examination: Lungs: Clear Heart: Regular rate and rhythm Incision: Clean and dry Plan: Left breast mammogram now she is due with appointment following the mammogram Right breast mammogram 6 months with follow-up at that time CC: Makeda Dumont
== END ==
LOC: WWCWWP 08:46
PROVIDERS: ATTEND Surgery
DX: Z85.3 Personal history of malignant neoplasm of breast (principal); Z88.5 Allergy status to narcotic agent; Z91.041 Radiographic dye allergy status; Z87.891 Personal history of nicotine dependence

== ENCOUNTER → 2023-05-14 | Outpatient (CLI) | payer OTHER ==
--- NOTE | 2023-05-14 09:13 | MM ---
Reason for Exam: Follow-up at short interval from prior study. Last screening mammogram was performed 12 month(s) ago. Patient History: Menarche at age 9. First Full-Term at age 17. Right ovary removed at age 34. Hysterectomy at age 34. 2022, Excisional Biopsy on the Right side. 2013, Excisional Biopsy on the Left side. Paternal grandmother had breast cancer under age 50. Risk Values: Chitra 5 year model risk: 1.1%. NCI Lifetime model risk: 10.5%. Prior Study Comparison: 03/10/2019 Bilateral Screening Mammogram, [facility]. 05/10/2022 Bilateral MG 3D screening mammo w/cad, [facility]. 01/10/2023 Right MG 3D diag mammo w/cad RT, [facility]. Tissue Density: Left: The breast tissue is almost entirely fat. Findings: Analyzed By CAD. 2 metallic densities in the left breast. No suspicious masses. No new suspicious masses, calcifications or distortions. Overall Assessment: Benign, BI-RAD 2 Management: Screening Mammogram of both breasts in 1 year. Results were given to the patient verbally at the time of exam. Patient should continue monthly self-breast exams. A clinical breast exam by your physician is recommended on an annual basis. This exam should not preclude additional follow-up of suspicious palpable abnormalities. Note on Chitra scores and lifetime risk: 1. A Chitra score greater than 3% is considered moderate risk. If this is the case, consider specialist referral to assess eligibility for a risk reducing agent. 2. If overall lifetime risk for the development of breast cancer is 20% or higher, the patient may qualify for future screening with alternating mammogram and breast MRI. Electronically signed and approved by: Hipolito Howe DO
== END | disposition home or self-care (01) ==
LOC: RADMAMWWP 08:22
PROVIDERS: ATTEND Surgery
DX: R92.8 Other abnormal and inconclusive findings on diagnostic imaging of breast (principal); Z80.3 Family history of malignant neoplasm of breast
CPT/HCPCS: 77065; G0279; 77061

== ENCOUNTER 2023-08-02 05:18 | Emergency (ER) | payer OTHER ==
[2023-08-02 05:36] VITALS: BP 149/103; PULSE 79; RESP 18; TEMP 97.7
[2023-08-02] MEDS ORDERED: KETOROLAC 15 MG/ML 1 ML VIAL IM STA (06:06)
[2023-08-02] MEDS ORDERED: Acetaminophen-Codeine 300-30mg TAB PO STA (06:06)
[2023-08-02] MEDS ORDERED: LIDOCAINE 4% CREAM 5 GM TUBE TOPICAL STA (06:06)
[2023-08-02] MEDS ORDERED: IBUPROFEN 600 MG STARTER PACK 4 TAB BTL PO STA (06:08)
[2023-08-02] MEDS ORDERED: ACET/COD 300 MG/30 MG STARTER PACK 6 TAB BTL PO STA (06:08)
--- NOTE | 2023-08-02 06:09 | ED ---
Skin/Abscess/FB HPI - General Chief complaint: Skin/Abscess/Foreign Body Stated complaint: Shingles Time Seen by Provider: 08/02/23 05:41 Source: patient, RN notes reviewed, old records reviewed Mode of arrival: ambulatory Limitations: no limitations - History of Present Illness Initial comments: This is a 48-year-old female to the emergency department for evaluation today. Patient presents today for evaluation regards to severe left arm pain is diagnosis of shingles pain is increasing severe severe sharp nerve neuralgic- type pain. Patient is not currently of pain meds is on acyclovir. Rash is not itchy is severely painful and only on her left shoulder and upper arm MD complaint: rash -: days(s) Location: LUE Severity: severe Severity scale (1-10): 9 Quality: burning, stabbing Consistency: constant Improves with: none Worsens with: none Context: none Associated symptoms: denies other symptoms - Related Data Home Medications Medication Instructions Recorded Confirmed Liraglutide [Saxenda] 3 mg .ROUTE DAILY 02/16/23 04/26/23 Cetirizine HCl [Zyrtec] 10 mg PO DAILY 04/05/23 04/26/23 Previous Rx's Medication Instructions Recorded HYDROcodone/APAP 5-325MG [[place] 1 tab PO Q6HR PRN #12 tab 08/02/23 5-325] Allergies Allergy/AdvReac Type Severity Reaction Status Date / Time Iodinated Contrast Media Allergy Rash/Hives Verified 08/02/23 05:36 tramadol AdvReac Unknown Verified 08/02/23 05:36 Review of Systems ROS Statement: Those systems with pertinent positive or pertinent negative responses have been documented in the HPI. ROS Other: All systems not noted in ROS Statement are negative. Past Medical History Past Medical History: Musculoskeletal Disorder Additional Past Medical History / Comment(s): pain lower lumbar,sacral spine History of Any Multi-Drug Resistant Organisms: None Reported Past Surgical History: Bladder Surgery, Cholecystectomy, Hysterectomy Additional Past Surgical History / Comment(s): BLADDER SUSPENSION, ENDOMETRIOSIS SURGERY Past Anesthesia/Blood Transfusion Reactions: Previous Problems w/ Anesthesia, Family Hisory of Malignant Hyperthermia Additional Past Anesthesia/Blood Transfusion Reaction / Comment(s): pt states experiences decreased b/p following anesthesia,. mother hx malignant hyperthermia-patient has never had this problem Past Psychological History: No Psychological Hx Reported Smoking Status: Former smoker Past Alcohol Use History: Occasional Past Drug Use History: Marijuana - Past Family History Mother Family Medical History: Deep Vein Thrombosis (DVT) General Exam - General Exam Comments Initial Comments: Shingles type vesicular rash left arm, left upper arm shoulder to elbow Limitations: no limitations General appearance: alert, in no apparent distress Head exam: Present: atraumatic, normocephalic, normal inspection Eye exam: Present: normal appearance, PERRL, EOMI. Absent: scleral icterus, conjunctival injection, periorbital swelling ENT exam: Present: normal exam, mucous membranes moist Neck exam: Present: normal inspection. Absent: tenderness, meningismus, lymphadenopathy Respiratory exam: Present: normal lung sounds bilaterally. Absent: respiratory distress, wheezes, rales, rhonchi, stridor Cardiovascular Exam: Present: regular rate, normal rhythm, normal heart sounds. Absent: systolic murmur, diastolic murmur, rubs, gallop, clicks GI/Abdominal exam: Present: soft, normal bowel sounds. Absent: distended, tenderness, guarding, rebound, rigid Extremities exam: Present: normal inspection, full ROM, normal capillary refill. Absent: tenderness, pedal edema, joint swelling, calf tenderness Back exam: Present: normal inspection Neurological exam: Present: alert, oriented X3, CN II-XII intact Psychiatric exam: Present: normal affect, normal mood Skin exam: Present: warm, dry, intact, normal color. Absent: rash Course Vital Signs 08/02/23 05:33 Temperature 97.7 F Pulse Rate 79 Respiratory 18 Rate Blood Pressure 149/103 O2 Sat by Pulse 95 Oximetry - Reevaluation(s) Reevaluation #1: 08/02/23 06:18 Medical records reviewed Reevaluation #2: 08/02/23 06:18 Patient symptoms are improved here in the ER Reevaluation #3: 08/02/23 06:18 Patient informed results questions of also been answered Reevaluation #4: 08/02/23 06:18 Was pt. sent in by a medical professional or institution (JANELLE Giron, MIXING MACHINE TENDER, urgent care, hospital, or prison...) When possible be specific @ -no Did you speak to anyone other than the patient for history (EMS, parent, family, police, friend...)? What history was obtained from this source @ -no Did you review nursing and triage notes (agree or disagree)? Why? @ -agree Are old charts reviewed (outside hosp., previous admission, EMS record, old EKG, old radiological studies, urgent care reports/EKG's, prison records)? Report findings @ -yes Differential Diagnosis (chest pain, altered mental status, abdominal pain women, abdominal pain men, vaginal bleeding, weakness, fever, dyspnea, syncope, headache, dizziness, GI bleed, back pain, seizure, CVA, palpatations, mental health, musculoskeletal)? @ -prior EKG interpreted by me (3pts min.). @ -no X-rays interpreted by me (1pt min.). @ -no CT interpreted by me (1pt min.). @ -no U/S interpreted by me (1pt. min.). @ -no What testing was considered but not performed or refused? (CT, X-rays, U/S, labs)? Why? @ -none What meds were considered but not given or refused? Why? @ -none Did you discuss the management of the patient with other professionals (professionals i.e. , PA, MIXING MACHINE TENDER, lab, RT, psych nurse, social media designer, commonwealth attorney, teacher, hospital chief financial officer, manager case)? Give summary @ -no Was smoking cessation discussed for >3mins.? @ -no Was critical care preformed (if so, how long)? @ -no Were there social determinants of health that impacted care today? How? (Homelessness, low income, unemployed, alcoholism, drug addiction, transportation, low edu. Level, literacy, decrease access to med. care, intermediate, rehab)? @ -none Was there de-escalation of care discussed even if they declined (Discuss DNR or withdrawal of care, Hospice)? DNR status @ -no What co-morbidities impacted this encounter? (DM, HTN, Smoking, COPD, CAD, Cancer, CVA, ARF, Chemo, Hep., AIDS, mental health diagnosis, sleep apnea, morbid obesity)? @ -none Was patient admitted / discharged? Hospital course, mention meds given and route, prescriptions, significant lab abnormalities, going to OR and other pertinent info. @ - 48 female to the emergency department for evaluation of severe left shoulder pain left arm pain. Patient's pain is well-controlled currently, is in no acute distress will be given further pain medication and can be discharged home Discharge Undiagnosed new problem with uncertain prognosis? @ -no Drug Therapy requiring intensive monitoring for toxicity (Heparin, Nitro, Insulin, Cardizem)? @ -no Were any procedures done? @ -no Diagnosis/symptom? @ -Shingles reaction and pain Acute, or Chronic, or Acute on Chronic? @ -Acute Uncomplicated (without systemic symptoms) or Complicated (systemic symptoms)? @ -Complicated Side effects of treatment? @ -no Exacerbation, Progression, or Severe Exacerbation? @ -exacerbation Poses a threat to life or bodily function? How? (Chest pain, [place], MA, pneumonia, PE, COPD, DKA, ARF, appy, cholecystitis, CVA, Diverticulitis, Homicidal, Suicidal, threat to staff... and all critical care pts) @ -yes Medical Decision Making - Medical Decision Making 48 female to the emergency department for evaluation of severe left shoulder pain left arm pain. Patient's pain is well-controlled currently, is in no acute distress will be given further pain medication and can be discharged home Disposition Clinical Impression: Shingles Disposition: HOME SELF-CARE Condition: Good Instructions (If sedation given, give patient instructions): Leyda (ED) Prescriptions: HYDROcodone/APAP 5-325MG [[place] 5-325] 1 tab PO Q6HR PRN #12 tab PRN Reason: Pain Is patient prescribed a controlled substance at d/c from ED?: No Referrals: Suellen Riena DO [Primary Care Provider] - 1-2 days Time of Disposition: 06:10
== END 2023-08-02 06:26 | disposition home or self-care (01) ==
LOC: EC 05:18
DX: B02.9 Zoster without complications (principal); F12.90 Cannabis use, unspecified, uncomplicated; Z91.041 Radiographic dye allergy status; Z88.5 Allergy status to narcotic agent; Z87.891 Personal history of nicotine dependence; Z90.49 Acquired absence of other specified parts of digestive tract
CPT/HCPCS: 99283 ×2; 96372 ×2; J1885

== ENCOUNTER → 2023-10-02 | Outpatient (CLI) | payer OTHER ==
--- NOTE | 2023-10-02 15:50 | P.SLEEP ---
History of Present Illness H&P Date: 10/02/23 This is a 48-year-old female patient was coming in for excessive tiredness and sleepiness during the day and the patient has an [place] score of 15. The patient is known to me. The patient has been diagnosed having obstructive sleep apnea many years back. Back in 2017, diagnosis patient having DONALD and she was a severe case with an AHI of 55. At that time, I offered her CPAP therapy and she was being treated with CPAP pressure of 7 cm of water. During the course of the years, the patient had a major traumatic event. Her was diagnosed having esophageal cancer and he was being treated with a combination of chemoradiation therapy. While at home, the suffered a heart attack and the patient was wearing her CPAP and she had difficulties reaching out to her as the patient got tangled and strapped on his CPAP hose and wiring. As such, she quit using her CPAP and that was the last day when she has orders CPAP over this past 5 years. The patient accordingly has become much more symptomatic. Over the past 5 years, the patient has lost weight. She is to weigh 21 Pounds and Currently She Is down to 285. Despite This Weight Loss, She Remains Quite Symptomatic As the Patient Continues to Snore and Quits Breathing in the Middle of the Night and She Is Waking up Tired and Not Refreshed during the Day. She Has Issues with Memory and Concentration. She Goes to Bed around 11 PM and Awakes at 7 AM in the Morning. On Weekends, the Patient States between 1 AM and 9 AM. The Patient Has an [place] Score of 15. No Sleep Paralysis. No Hallucinations. No Cataplexy. No History of Any Motor Vehicle Accident Because of Sleep Apnea. She Has a CPAP Machine at Home Which She Hasn't Used. Review of Systems Constitutional: Reports daytime sleepiness, Reports weight loss (the patient has lost approximately 35 pounds) Eyes: denies as per HPI, denies blurred vision, denies bulging eye, denies decreased vision, denies diplopia, denies discharge, denies dry eye, denies irritation, denies itching, denies pain, denies photophobia, denies loss of peripheral vision, denies loss of vision, denies tunnel vision/blind spots Ears: deny: decreased hearing, ear discharge, earache, tinnitus Ears, nose, mouth and throat: Reports as per HPI Breasts: absent: as per HPI, change in shape, gynecomastia, masses, nipple discharge, pain, skin changes, swelling Cardiovascular: Reports as per HPI Respiratory: Reports sleep apnea Gastrointestinal: Reports as per HPI Genitourinary: Reports as per HPI Menstruation: Reports as per HPI Musculoskeletal: Reports as per HPI Musculoskeletal: absent: ankle pain, ankle stiffness, ankle swelling, as per HPI, elbow pain, elbow stiffness, elbow swelling, foot pain, foot stiffness, foot swelling, hand pain, hand stiffness, hand swelling, hip pain, hip stiffness, hip swelling, knee pain, knee stiffness, knee swelling, shoulder pain, shoulder stiffness, shoulder swelling, wrist pain, wrist stiffness, wrist swelling Integumentary: Reports as per HPI Neurological: Reports as per HPI Psychiatric: Reports as per HPI Endocrine: Reports as per HPI, Reports fatigue Hematologic/Lymphatic: Reports as per HPI Allergic/Immunologic: Reports as per HPI Past Medical History Past Medical History: Musculoskeletal Disorder, Sleep Apnea/CPAP/BIPAP Additional Past Medical History / Comment(s): pain lower lumbar,sacral spine History of Any Multi-Drug Resistant Organisms: None Reported Past Surgical History: Bladder Surgery, Cholecystectomy, Hysterectomy Additional Past Surgical History / Comment(s): BLADDER SUSPENSION, ENDOMETRIOSIS SURGERY Past Anesthesia/Blood Transfusion Reactions: Previous Problems w/ Anesthesia, Family Hisory of Malignant Hyperthermia Additional Past Anesthesia/Blood Transfusion Reaction / Comment(s): pt states experiences decreased b/p following anesthesia,. mother hx malignant hyperthermia-patient has never had this problem Past Psychological History: No Psychological Hx Reported Smoking Status: Former smoker Past Alcohol Use History: Occasional Past Drug Use History: Marijuana - Past Family History Mother Family Medical History: Deep Vein Thrombosis (DVT) Medications and Allergies Home Medications Medication Instructions Recorded Confirmed Type Liraglutide [Saxenda] 3 mg .ROUTE DAILY 02/16/23 04/26/23 History Cetirizine HCl [Zyrtec] 10 mg PO DAILY 04/05/23 04/26/23 History HYDROcodone/APAP 5-325MG [[place] 1 tab PO Q6HR PRN #12 tab 08/02/23 Rx 5-325] Allergies Allergy/AdvReac Type Severity Reaction Status Date / Time Iodinated Contrast Media Allergy Rash/Hives Verified 08/02/23 05:36 tramadol AdvReac Unknown Verified 08/02/23 05:36 Physical Exam BP is 110/72, pulse is 79, respirations 16, temperature 97.7, weight is 285 pounds, BMI 42,the size of the neck is 15 and the patient has a [place] score of 15. Pulse ox is 98%. The patient appeared well nourished and normally developed. Vital signs as documented. Head exam is unremarkable. No scleral icterus or corneal arcus noted. Neck is without jugular venous distension, thyromegaly, or carotid bruits. the patient has a Mallampati class IV with significant crowding of posterior pharynx.Carotid upstrokes are brisk bilaterally. Lungs are clear to auscultation and percussion. Cardiac exam reveals the PMI to be normally sized and situated. Rhythm is regular. First and second heart sounds normal. No murmurs, rubs or gallops. Abdominal exam reveals normal bowel sounds, no masses, no organomegaly and no aortic enlargement. Extremities are nonedematous and both femoral and pedal pulses are normal.Neurologically, the patient is awake and alert and the patient does not have any focal neurological deficit. Cranial nerves are essentially intact.Examination of the skin revealed no evidence of significant rashes, suspicious appearing nevi or other concerning lesions. Assessment and Plan Plan: obstructive sleep apnea, original diagnosis was established back in 2017 and back then the patient severe disease with an AHI of 55. Currently the patient is off treatment. She has a CPAP machine at home and she hasn't used the machine over the past 5 years due to the above-mentioned circumstances. As such, the patient become quite symptomatic at this point in time and she is coming in for further advice Obesity with interval 35 pounds weight loss and current body mass index is 42 Chronic hypersomnia secondary to above, currently [place] score to 15 History of sinus ALLERGIES maintained on Zyrtec Plan Based on an underlying weight loss, the patient was consistent for reevaluation to see if she has ongoing sleep apnea and to evaluate her disease severity. I'm quite confident that the patient has sleep apnea. Her symptoms indicate that. I'm going to order a home sleep study for this patient to evaluate the presence and assess the severity of sleep apnea. If considerable amount of disease is present, the patient will be offered CPAP therapy. She has a functional machine at home. I asked her to bring in the machine during her next visit should he have the need to use her own machine and will make the appropriate adjustments and proceed with treatment accordingly. Note that her previous CPAP pressure was at 7 cm of water. I may get by utilizing similar pressures with the appropriate mask interface. Encourage further weight loss. We'll continue to follow. Sleep Note - Sleep Note Sleep Note: Temperature: Pulse Rate: Respiratory Rate: Blood Pressure: SpO2: Height: Weight: BMI: Neck Circumference:
== END ==
LOC: 3 N SLEEP 14:23
PROVIDERS: ATTEND Internal Medicine Critical Care Medicine
DX: G47.33 Obstructive sleep apnea (adult) (pediatric) (principal); E66.9 Obesity, unspecified; Z68.41 Body mass index [BMI] 40.0-44.9, adult; G47.10 Hypersomnia, unspecified; J32.9 Chronic sinusitis, unspecified; Z99.89 Dependence on other enabling machines and devices; Z87.891 Personal history of nicotine dependence
CPT/HCPCS: 99211

== ENCOUNTER → 2023-10-19 | Outpatient (CLI) | payer OTHER ==
--- NOTE | 2023-10-23 22:47 | SLS ---
SLEEP STUDY This is a home sleep study testing. HISTORY OF PRESENT ILLNESS: This patient is 48 years old with known history of obstructive sleep apnea. Original diagnosis was established in 2017, and back then the patient has severe disease with an AHI of 55. [facility] and she was off treatment. She has a machine at home that she has not used over the past 5 years and the patient has become quite symptomatic from her sleep apnea. The patient had interval 35 pounds weight loss since 2017. She continues to have hypersomnia and sleepiness with an Harrison score of 15. PERTINENT PHYSICAL FINDINGS: The patient has a weight of 285 pounds with a body mass index of 42 and an Harrison score of 15. TECHNICAL DESCRIPTION: The IQzone apnea index system was used to complete this home sleep study. This is a type 3 home sleep study. Total recording duration was 7 hours and 38 minutes. The study started at 2:10 am and the study ended at 9:48 a.m. The patient had a total of 6 hours and 41 minutes of flow monitoring and 7 hours and 27 minutes of oxygen saturation evaluation. As such, this was an adequate study. RESULTS: Respiratory analysis showed a total of 60 obstructive apneas and a total of 135 obstructive hypopneas. The resulting AHI was 29 consistent with [id number] disease. disease was worse in the supine body position with an AHI of 38.6 while in the supine body position. OXYGENATION ANALYSIS: The baseline pulse ox was 95%. Average pulse ox during sleep was 93%. Lowest pulse ox was 84% and the patient spent approximately 8 minutes of sleep time at a pulse ox of 88% and below. CARDIAC SUMMARY: Average heart rate was 87. Minimum heart rate was 60. Maximum heart rate was 110. ASSESSMENT: 1. Obstructive sleep apnea, moderate in severity with an AHI of 21.1, worse in the supine body position with an AHI of 38. 2. Minimal nocturnal oxygen desaturation secondary to obstructive sleep apnea. 3. Chronic hypersomnia Harrison score of 15. 4. Obesity with a BMI of 42. 5. Chronic sinus allergies maintained on Zyrtec. PLAN: The patient is quite symptomatic from her [id number] obstructive sleep apnea. She is in need of CPAP therapy. The patient has a functional machine at home. I am going to meet this patient in my office along with her machine and set up her machine to restart treatment. Note that her previous treated pressure setting was 7 cm of water. We will offer the appropriate mask interface and will continue to follow. Encouraged further weight loss. We will proceed with treatment. QUIRINOL / JESSICAN: [id number] /
== END ==
LOC: 3 N SLEEP 11:05
PROVIDERS: ATTEND Internal Medicine Critical Care Medicine
DX: G47.33 Obstructive sleep apnea (adult) (pediatric) (principal); G47.36 Sleep related hypoventilation in conditions classified elsewhere; G47.10 Hypersomnia, unspecified; E66.9 Obesity, unspecified; J30.2 Other seasonal allergic rhinitis; Z68.41 Body mass index [BMI] 40.0-44.9, adult; Z91.041 Radiographic dye allergy status; Z88.8 Allergy status to other drugs, medicaments and biological substances; Z87.891 Personal history of nicotine dependence

== ENCOUNTER 2024-01-22 12:21 | Emergency (ER) | payer OTHER ==
--- NOTE | 2024-01-22 13:17 | ED ---
General Adult HPI - General Source: patient, RN notes reviewed Mode of arrival: wheelchair Limitations: no limitations <Jimi Rosa - Last Filed: 01/22/24 13:16> - General Source: patient, RN notes reviewed Mode of arrival: wheelchair Limitations: no limitations <Pablito Cisse - Last Filed: 01/22/24 17:11> - General Chief complaint: Neuro Symptoms/Deficit Stated complaint: Elevated BP, hx of Stroke on 01/15 Time Seen by Provider: 01/22/24 12:37 - History of Present Illness Initial comments: Quick note 48-year-old female presents emergency department chief complaint of hypertension, arm numbness. Patient states she was admitted at [facility] last week he was diagnosed with a TIA. She states that she is found to have what she describes as a hole in her heart. Patient states that she is scheduled to see a office inspector. Patient states she was discharged on amlodipine and aspirin. She states at that time she had some expressive aphasia, dizziness, numbness. She states that some of the symptoms she has now is similar. Patient denies any focal weakness (Jimi Rosa) Patient is a pleasant 48-year-old female presents emergency department with concerns for right arm paresthesia and headache. Patient states a week ago she was diagnosed with TIA at [facility]. Patient has been having headaches since that time. Headache currently is 5/10. Patient feels a little bit fuzzy in her head, lightheaded. Patient had some blurry vision when she was diagnosed with TIA. Patient did have CT scan of brain and noncontrast MRI which was reported to her as normal. Patient denies any speech problems today. No extremity weakness. Patient does have appointment tomorrow with cardiology to evaluate for hole in her heart. Patient states she was discharged on Norvasc. Patient states blood pressure earlier today was somewhat high, as high as 158/102. (Pablito Cisse) - Related Data Home Medications Medication Instructions Recorded Confirmed Aspirin EC [Ecotrin Low Dose] 81 mg PO DAILY 01/22/24 01/22/24 Ketorolac [Toradol] 10 mg PO Q6HR PRN 01/22/24 01/22/24 amLODIPine [Norvasc] 5 mg PO HS 01/22/24 01/22/24 Allergies Allergy/AdvReac Type Severity Reaction Status Date / Time Influenza Virus Vaccines Allergy Unknown Verified 01/22/24 16:47 Iodinated Contrast Media Allergy Rash/Hives Verified 01/22/24 16:47 tramadol AdvReac Unknown Verified 01/22/24 16:47 Review of Systems ROS Other: All systems not noted in ROS Statement are negative. <ShelleyJimi English - Last Filed: 01/22/24 13:16> ROS Other: All systems not noted in ROS Statement are negative. Constitutional: Denies: fever Eyes: Denies: eye pain ENT: Denies: ear pain Respiratory: Denies: cough, dyspnea Cardiovascular: Denies: chest pain Neurological: Reports: as per HPI, headache. Denies: weakness <Pablito Cisse - Last Filed: 01/22/24 17:11> ROS Statement: Those systems with pertinent positive or pertinent negative responses have been documented in the HPI. Past Medical History Past Medical History: Musculoskeletal Disorder, Sleep Apnea/CPAP/BIPAP Additional Past Medical History / Comment(s): pain lower lumbar,sacral spine History of Any Multi-Drug Resistant Organisms: None Reported Past Surgical History: Bladder Surgery, Cholecystectomy, Hysterectomy Additional Past Surgical History / Comment(s): BLADDER SUSPENSION, ENDOMETRIOSIS SURGERY Past Anesthesia/Blood Transfusion Reactions: Previous Problems w/ Anesthesia, Family Hisory of Malignant Hyperthermia Additional Past Anesthesia/Blood Transfusion Reaction / Comment(s): pt states experiences decreased b/p following anesthesia,. mother hx malignant hyperthermia-patient has never had this problem Past Psychological History: No Psychological Hx Reported Smoking Status: Former smoker Past Alcohol Use History: Occasional Past Drug Use History: Marijuana - Past Family History Mother Family Medical History: Deep Vein Thrombosis (DVT) <Jimi Rosa - Last Filed: 01/22/24 13:16> General Exam Limitations: no limitations <Jimi Rosa Tameka - Last Filed: 01/22/24 13:16> Limitations: no limitations General appearance: alert, in no apparent distress Head exam: Present: normocephalic Eye exam: Present: normal appearance, PERRL, EOMI ENT exam: Present: normal oropharynx Neck exam: Present: normal inspection Respiratory exam: Present: normal lung sounds bilaterally Cardiovascular Exam: Present: regular rate, normal rhythm, normal heart sounds GI/Abdominal exam: Present: soft. Absent: tenderness Extremities exam: Present: normal inspection. Absent: pedal edema, calf tenderness Neurological exam: Present: alert, oriented X3, CN II-XII intact. Absent: motor sensory deficit Expanded Neurological exam: Present: protecting the airway Speech: Present: fluid speech Cranial nerves: EOM's Intact: Normal, Facial Sensation: Normal Sensory exam: Upper Extremity Light Touch: Normal, Lower Extremity Light Touch: Normal Motor strength exam: RUE: 5, LUE: 5, RLE: 5, LLE: 5 Eye Response: (4) open spontaneously Motor Response: (6) obeys commands Verbal Response: (5) oriented Psychiatric exam: Present: normal affect, normal mood Skin exam: Present: normal color <Pablito Cisse - Last Filed: 01/22/24 17:11> - General Exam Comments Initial Comments: Visual Physical Exam Vital signs reviewed General: Well-appearing, nontoxic, no acute distress. Head: Normocephalic, atraumatic Eyes: PERRLA, EOMI ENT: Airway patent Chest: Nonlabored breathing Skin: No visual rash, normal skin tone Neuro: Alert and oriented 3 Musculoskeletal: No gross abnormalities (Jimi Rosa) Course Vital Signs 01/22/24 01/22/24 12:25 16:45 Temperature 98.8 F 98.1 F Pulse Rate 88 66 Respiratory 18 18 Rate Blood Pressure 146/86 132/86 O2 Sat by Pulse 99 96 Oximetry EKG Findings - EKG Results: EKG: interpreted by NIA, sinus rhythm, normal axis, normal QRS, normal ST/T <Pablito Cisse - Last Filed: 01/22/24 17:11> Medical Decision Making <Jimi Rosa - Last Filed: 01/22/24 13:16> - Lab Data Result diagrams: 01/22/24 13:58 01/22/24 13:58 <Pablito Cisse - Last Filed: 01/22/24 17:11> - Medical Decision Making I completed the quick note portion of this chart signed Jimi Rosa PA-C (Jimi Rosa) Was pt. sent in by a medical professional or institution ([facility], [facility], urgent care, hospital, or shelter...) When possible be specific @ -No Did you speak to anyone other than the patient for history (EMS, parent, family, police, friend...)? What history was obtained from this source @ -No Did you review nursing and triage notes (agree or disagree)? Why? @ -I reviewed and agree with nursing and triage notes Were old charts reviewed (outside hosp., previous admission, EMS record, old EKG, old radiological studies, urgent care reports/EKG's, shelter records)? Report findings @ -No old charts were reviewed Differential Diagnosis (chest pain, altered mental status, abdominal pain women, abdominal pain men, vaginal bleeding, weakness, fever, dyspnea, syncope, headache, dizziness, GI bleed, back pain, seizure, CVA, palpatations, mental health, musculoskeletal)? @ -Differential Headache: Migraine, tension, cluster, carbon monoxide, central venous thrombosis, pension karma temporal arteritis, acute closure glaucoma, intercranial hemorrhage, mastoiditis, sinusitis, head injury, this is not meant to be an all-inclusive list. EKG interpreted by me (3pts min.). @ -As above X-rays interpreted by me (1pt min.). @ -None done CT interpreted by me (1pt min.). @ -CT brain without acute abnormality U/S interpreted by me (1pt. min.). @ -None done What testing was considered but not performed or refused? (CT, X-rays, U/S, labs)? Why? @ -None What meds were considered but not given or refused? Why? @ -None Did you discuss the management of the patient with other professionals (professionals i.e. , PA, FO[employer] M[employer]DER, lab, RT, psych nurse, director social, undergraduate intern, teacher, chief nursing officer, case repairer)? Give summary @ -No Was smoking cessation discussed for >3mins.? @ -No Was critical care preformed (if so, how long)? @ -No Were there social determinants of health that impacted care today? How? (Homelessness, low income, unemployed, alcoholism, drug addiction, transportation, low edu. Level, literacy, decrease access to med. care, shelter, rehab)? @ -No Was there de-escalation of care discussed even if they declined (Discuss DNR or withdrawal of care, Hospice)? DNR status @ -No What co-morbidities impacted this encounter? (DM, HTN, Smoking, COPD, CAD, Cancer, CVA, ARF, Chemo, Hep., AIDS, mental health diagnosis, sleep apnea, morbid obesity)? @ -Patient reports recent TIA Was patient admitted / discharged? Hospital course, mention meds given and route, prescriptions, significant lab abnormalities, going to OR and other pertinent info. @ -Patient presents with headache and paresthesia. no signs of TIA or stroke on evaluation. Workup without acute abnormality. On reevaluation patient is resting comfortably in bed without complaint. Patient will be discharged and recommended follow-up with primary care physician, cardiology tomorrow as planned and neurology. Undiagnosed new problem with uncertain prognosis? @ -No Drug Therapy requiring intensive monitoring for toxicity (Heparin, Nitro, Insulin, Cardizem)? @ -No Were any procedures done? @ -No Diagnosis/symptom? @ -Headache, paresthesia Acute, or Chronic, or Acute on Chronic? @ -Acute, acute Uncomplicated (without systemic symptoms) or Complicated (systemic symptoms)? @ -Default Side effects of treatment? @ -No Exacerbation, Progression, or Severe Exacerbation? @ -No Poses a threat to life or bodily function? How? (Chest pain, [place], [place], pneumonia, PE, COPD, DKA, ARF, appy, cholecystitis, CVA, Diverticulitis, Homicidal, Suicidal, threat to staff... and all critical care pts) @ -No (Pablito Cisse) - Lab Data Lab Results 01/22/24 01/22/24 01/22/24 Range/Units 13:58 13:58 13:58 WBC 8.0 (3.8-10.6) k/uL RBC 4.93 (3.80-5.40) m/uL Hgb 15.6 (11.4-16.0) gm/dL Hct 45.8 (34.0-46.0) % MCV 93.0 (80.0-100.0) fL MCH 31.7 (25.0-35.0) pg MCHC 34.1 (31.0-37.0) g/dL RDW 12.1 (11.5-15.5) % Plt Count 247 (150-450) k/uL MPV 7.4 Neutrophils % 54 % Lymphocytes % 38 % Monocytes % 5 % Eosinophils % 1 % Basophils % 1 % Neutrophils # 4.3 (1.3-7.7) k/uL Lymphocytes # 3.0 (1.0-4.8) k/uL Monocytes # 0.4 (0-1.0) k/uL Eosinophils # 0.1 (0-0.7) k/uL Basophils # 0.1 (0-0.2) k/uL PT 9.9 L (10.0-12.5) sec INR 0.9 (<1.2) APTT 22.4 (22.0-30.0) sec Sodium 139 (137-145) mmol/L Potassium 3.8 (3.5-5.1) mmol/L Chloride 104 (98-107) mmol/L Carbon Dioxide 29 (22-30) mmol/L Anion Gap 6 mmol/L BUN 18 H (7-17) mg/dL Creatinine 0.80 (0.52-1.04) mg/dL Est GFR (CKD-EPI)AfAm >90 (>60 ml/min/1.73 sqM) Est GFR (CKD-EPI)NonAf 87 (>60 ml/min/1.73 sqM) Glucose 105 H (74-99) mg/dL Calcium 9.0 (8.4-10.2) mg/dL Magnesium 2.0 (1.6-2.3) mg/dL Total Bilirubin 0.4 (0.2-1.3) mg/dL AST 23 (14-36) U/L ALT 21 (4-34) U/L Alkaline Phosphatase 93 (38-126) U/L Creatine Kinase 85 (30-135) U/L Troponin I (0.000-0.034) ng/mL Total Protein 7.4 (6.3-8.2) g/dL Albumin 4.1 (3.5-5.0) g/dL 01/22/24 Range/Units 13:58 WBC (3.8-10.6) k/uL RBC (3.80-5.40) m/uL Hgb (11.4-16.0) gm/dL Hct (34.0-46.0) % MCV (80.0-100.0) fL MCH (25.0-35.0) pg MCHC (31.0-37.0) g/dL RDW (11.5-15.5) % Plt Count (150-450) k/uL MPV Neutrophils % % Lymphocytes % % Monocytes % % Eosinophils % % Basophils % % Neutrophils # (1.3-7.7) k/uL Lymphocytes # (1.0-4.8) k/uL Monocytes # (0-1.0) k/uL Eosinophils # (0-0.7) k/uL Basophils # (0-0.2) k/uL PT (10.0-12.5) sec INR (<1.2) APTT (22.0-30.0) sec Sodium (137-145) mmol/L Potassium (3.5-5.1) mmol/L Chloride (98-107) mmol/L Carbon Dioxide (22-30) mmol/L Anion Gap mmol/L BUN (7-17) mg/dL Creatinine (0.52-1.04) mg/dL Est GFR (CKD-EPI)AfAm (>60 ml/min/1.73 sqM) Est GFR (CKD-EPI)NonAf (>60 ml/min/1.73 sqM) Glucose (74-99) mg/dL Calcium (8.4-10.2) mg/dL Magnesium (1.6-2.3) mg/dL Total Bilirubin (0.2-1.3) mg/dL AST (14-36) U/L ALT (4-34) U/L Alkaline Phosphatase (38-126) U/L Creatine Kinase (30-135) U/L Troponin I <0.012 (0.000-0.034) ng/mL Total Protein (6.3-8.2) g/dL Albumin (3.5-5.0) g/dL Disposition <Jimi Rosa - Last Filed: 01/22/24 13:16> Is patient prescribed a controlled substance at d/c from ED?: No Time of Disposition: 17:10 <Pablito Cisse - Last Filed: 01/22/24 17:11> Clinical Impression: Headache, Paresthesia Disposition: HOME SELF-CARE Condition: Stable Instructions (If sedation given, give patient instructions): Acute Headache (ED), Paresthesia (ED) Additional Instructions: Please do follow-up with primary care physician in the next 1 or 2 days for recheck. Please also follow-up with neurology in the next day or 2 for recheck. Please follow-up with cardiology tomorrow as planned. Return for weakness, confusion, speech problems, visual changes, loss of sensation, worsening symptoms or other concerns. Referrals: Suellen Reina DO [Primary Care Provider] - 1-2 days Tony Rea MD [STAFF PHYSICIAN] - 1-2 days Nacho Tanner MD [Medical Doctor] - 1-2 days
[2024-01-22 14:16] LABS: Basophils # (A) 0.1 k/uL (0-0.2); Basophils % (A) 1 %; Eosinophils # (A) 0.1 k/uL (0-0.7); Eosinophils % (A) 1 %; HCT 45.8 % (34.0-46.0); HGB 15.6 gm/dL (11.4-16.0); Lymphocytes % (A) 38 %; MCH 31.7 pg (25.0-35.0); MCHC 34.1 g/dL (31.0-37.0); Mean Platelet Volume 7.4; Monocytes # (A) 0.4 k/uL (0-1.0); Monocytes % (A) 5 %; Neutrophils # (A) 4.3 k/uL (1.3-7.7); Neutrophils % (A) 54 %; Platelet Count 247 k/uL (150-450); RBC 4.93 m/uL (3.80-5.40); RDW 12.1 % (11.5-15.5)
[2024-01-22 14:27] LABS: ALT 21 U/L (4-34); AST 23 U/L (14-36); African American GFR (CKD) >90 (>60 ml/min/1.73 sqM); Albumin 4.1 g/dL (3.5-5.0); Alkaline Phosphatase 93 U/L (38-126); Anion Gap 6 mmol/L; Blood Urea Nitrogen 18 mg/dL (7-17); Carbon Dioxide 29 mmol/L (22-30); Chloride 104 mmol/L (98-107); Creatine Kinase 85 U/L (30-135); Glucose 105 mg/dL (74-99); Non-African American GFR(CKD) 87 (>60 ml/min/1.73 sqM); Potassium 3.8 mmol/L (3.5-5.1); Sodium 139 mmol/L (137-145); Total Bilirubin 0.4 mg/dL (0.2-1.3); Total Protein 7.4 g/dL (6.3-8.2)
[2024-01-22 14:35] LABS: INR 0.9 (<1.2); Partial Thromboplastin Time 22.4 sec (22.0-30.0); Prothrombin Time 9.9 sec (10.0-12.5)
[2024-01-22] MEDS: HYDROmorphone 1 MG/ML 1 ML SYRINGE IVP STA (15:05)
[2024-01-22] MEDS: FAMOTIDINE 20 MG/2 ML VIAL IV STA (15:05)
[2024-01-22] MEDS: diphenhydrAMINE 50 MG/ML 1 ML VIAL IVP STA (15:06)
[2024-01-22] MEDS: SODIUM CHLORIDE 0.9% 500 ML 500 ML IV STA (15:06)
[2024-01-22] MEDS: methylPREDNISolone SOD SUCCI 125 MG/2 ML VIAL IV STA (15:06)
--- NOTE | 2024-01-22 16:22 | CT ---
EXAMINATION TYPE: CT angio head neck DATE OF EXAM: 01/22/2024 HISTORY: Headache, pt had stroke on 01/15. Was scanned at different hospital COMPARISON: No comparison imaging is available at this location CT DLP: 2220.8 mGycm. Automated Exposure Control for Dose Reduction was Utilized. TECHNIQUE: CTA scan of the neck is performed with IV Contrast, patient injected with 65 mL of Isovue 370, axial images are obtained, coronal and sagittal reformatted images are reviewed. Three-D recons tructed images are created on an independent workstation and reviewed. Source images are reviewed. FINDINGS: CT of the brain is performed utilizing 3 mm thick sections through the posterior fossa and 3 mm thick sections through the remaining calvarium. Study is performed within 24 hours of arrival to the hosp [facility]. No abnormal hyperdensity is present to suggest an acute intracranial hemorrhage. No mass lesion is evident. No acute or subacute infarcts are evident. Ventricles and sulci are appropriate for the patient age. Paranasal sinuses and mastoid air cells within the [id number] are clear. CTA: Carotid/Vascular Structures: There is a 3 vessel arch. Common carotid arteries bifurcate into internal and external carotid arteries without significant rajiv w limiting stenosis. Vertebral arteries are codominant. Internal carotid arteries and vertebral arteries are patent to the skull base. Cervical of [place]: Vertebral basilar system appears normal. Posterior cerebral vasculature is unrema rkable. Internal carotid arteries bifurcate normally into A1 and M1 segments. A2 segments are normal. The anterior communicating artery is patent. The right posterior communicating artery is absent. The left posterior communicating artery is patent. Other: There is a hypodense nodule within the left lobe thyroid. Follow-up ultrasound recommended for additional evaluation. IMPRESSION: 1. No acute or subacute intracranial process. 2. No flow-limiting stenosis bilateral carotid bifurcations. 3. Normal [place] of [place] NASCET criteria was used in interpretation of this exam?
[2024-01-22 17:10] VITALS: PULSE 66; TEMP 98.1
[2024-01-22 17:39] VITALS: BP 137/87; RESP 16
== END 2024-01-22 17:39 | disposition home or self-care (01) ==
LOC: EC 12:21
DX: R51.9 Headache, unspecified (principal); R20.2 Paresthesia of skin; G47.30 Sleep apnea, unspecified; Z87.891 Personal history of nicotine dependence; F12.90 Cannabis use, unspecified, uncomplicated; Z79.82 Long term (current) use of aspirin; Z79.899 Other long term (current) drug therapy; Z88.7 Allergy status to serum and vaccine; Z91.041 Radiographic dye allergy status; Z88.5 Allergy status to narcotic agent
CPT/HCPCS: 36415; 93005; 80053; 82550; 83735; 84484; 85025; 85610; 85730; 70496; 70498; 99284; 96374; 96375 ×3; 96361; J1200; J2930; J3490; J1170; Q9967

== ENCOUNTER → 2024-05-15 | Outpatient (CLI) | payer OTHER ==
--- NOTE | 2024-05-15 08:19 | MM ---
Reason for Exam: Clinical finding. Last mammogram was performed 2 year(s) and 0 month(s) ago. Indicated Problems: Pain of the left side (Global) for 1 Month(s). Patient History: Menarche at age 9. First Full-Term at age 17. Right ovary removed at age 34. Hysterectomy at age 34. Patient has history of breast feeding. 2022, Excisional Biopsy on the Right side. 2013, Excisional Biopsy on the Left side. Paternal grandmother had breast cancer under age 50. Risk Values: Chitra 5 year model risk: 1.2%. NCI Lifetime model risk: 10.4%. Prior Study Comparison: 02/04/2003 Bilateral Diagnostic Mammogram, [facility]. 02/04/2003 Left Diagnostic Ultrasound, [facility]. 08/07/2003 Bilateral Diagnostic Mammogram, [facility]. 08/07/2003 Right Diagnostic Ultrasound, [facility]. 12/26/2013 Screening Mammogram, [place]. 02/05/2014 Screening Mammogram, [place]. 02/23/2014 Screening Mammogram, [place]. 02/18/2015 Bilateral Screening Mammogram, [facility]. 02/23/2016 Bilateral Screening Mammogram, [facility]. 03/10/2019 Bilateral Screening Mammogram, [facility]. 05/10/2022 Bilateral MG 3D screening mammo w/cad, [facility]. 01/10/2023 Right MG 3D diag mammo w/cad RT, [facility]. 01/10/2023 Right US breast limited RT, [facility]. Tissue Density: There are scattered areas of fibroglandular density. Findings: Analyzed By CAD. Operative changes are seen bilaterally. No evidence for mass or distortion. No significant abnormality identified at the site of pain outer aspect left breast. Ultrasound is recommended. Overall Assessment: Incomplete: need additional imaging evaluation, BI-RAD 0 Management: Diagnostic Breast Ultrasound of the left breast. . Results were given to the patient verbally at the time of exam. Patient should continue monthly self-breast exams. A clinical breast exam by your physician is recommended on an annual basis. This exam should not preclude additional follow-up of suspicious palpable abnormalities. Note on Chitra scores and lifetime risk: 1. A Chitra score greater than 3% is considered moderate risk. If this is the case, consider specialist referral to assess eligibility for a risk reducing agent. 2. If overall lifetime risk for the development of breast cancer is 20% or higher, the patient may qualify for future screening with alternating mammogram and breast MRI. Electronically signed and approved by: Malvin Bowers M.D. Radiologis
--- NOTE | 2024-05-15 08:49 | USB ---
Patient History: Menarche at age 9. First Full-Term at age 17. Right ovary removed at age 34. Hysterectomy at age 34. Patient has history of breast feeding. 2022, Excisional Biopsy on the Right side. 2013, Excisional Biopsy on the Left side. Paternal grandmother had breast cancer under age 50. Risk Values: Chitra 5 year model risk: 1.2%. NCI Lifetime model risk: 10.4%. Technique: Method: Targeted. Doppler: Color. Patient Position: Supine. Prior Study Comparison: 05/10/2022 Bilateral MG 3D screening mammo w/cad, [facility]. 01/10/2023 Right MG 3D diag mammo w/cad RT, [facility]. 01/10/2023 Right US breast limited RT, [facility]. 05/14/2023 Left MG 3D diag mammo w/cad LT, [facility]. Findings: The upper inner quadrant of the right breast, the lateral section of the breast of the left breast, the axilla of both breasts and the retroareolar of both breasts were scanned. Right breast: At the right 2:00 position 3 cm from the nipple There is a fluid collection measuring approximately 1.3 x 0.5 cm with isoechoic to breast parenchyma density measuring 1.1 x 4.5 cm. This is located at the site of prior duct removal and likely is postoperative in nature however short-term follow-up is recommended in 3 months. Left breast: Small complex cysts are noted measuring less than 5 mm at the left 3:00 position 6 cm from the nipple. No solid masses are seen. Six-month follow-up advised. Overall Assessment: Probably benign, BI-RAD 3 Management: Diagnostic Breast Ultrasound of the right breast in 3 months. A clinical breast exam by your physician is recommended on an annual basis and results should be correlated with mammographic findings. This exam should not preclude additional follow-up of suspicious palpable abnormalities. Results were given to the patient verbally at the time of exam. Electronically signed and approved by: Malvin Bowers M.D. Radiologis
== END | disposition home or self-care (01) ==
LOC: RADMAMWWP 07:42
PROVIDERS: ATTEND Family Medicine
DX: R92.323 Mammographic fibroglandular density, bilateral breasts (principal); N64.4 Mastodynia; Z80.3 Family history of malignant neoplasm of breast
CPT/HCPCS: 77062; 77066

== ENCOUNTER → 2024-08-15 | Outpatient (CLI) | payer OTHER ==
--- NOTE | 2024-08-15 08:45 | USB ---
Reason for Exam: Additional evaluation requested from prior study. Patient History: Menarche at age 9. First Full-Term at age 17. Right ovary removed at age 34. Hysterectomy at age 34. Patient has history of breast feeding. 2022, Excisional Biopsy on the Right side. 2013, Excisional Biopsy on the Left side. Paternal grandmother had breast cancer under age 50. Risk Values: Chitra 5 year model risk: 1.2%. NCI Lifetime model risk: 10.4%. Technique: Method: Targeted. Doppler: Color. Patient Position: Supine. Prior Study Comparison: 01/10/2023 Right MG 3D diag mammo w/cad RT, [facility]. 05/14/2023 Left MG 3D diag mammo w/cad LT, [facility]. 05/15/2024 Bilateral MG 3D diag mammo w/cad [facility], [facility]. Findings: The area of palpable concern of the right breast, the axilla of the right breast and the retroareolar of the right breast were scanned. At the 2:00 position 3 cm nipple is a 1.2 x 0.6 x 1.5 centimeter isoechoic lesion in adjacent fat with surrounding fluid. No debris within the fluid is evident. This has apparently increased slightly in size from the comparison study. This areas within the region of the patient's breast pain. Real-time observation was performed. Given the changing findings, ultrasound core biopsy is recommended.. There is an additional small hypoechoic density with slightly hyperechoic center 9:00 position. This area was present previously and appears stable. Overall Assessment: Suspicious, BI-RAD 4 Management: Ultrasound Core Biopsy of the right breast. A clinical breast exam by your physician is recommended on an annual basis and results should be correlated with mammographic findings. This exam should not preclude additional follow-up of suspicious palpable abnormalities. Results were given to the patient verbally at the time of exam. [facility], , 08/15/2024 8:42 AM. Electronically signed and approved by: Shant Chowdary D.O. Radiologis
== END | disposition home or self-care (01) ==
LOC: RADUSWWP 08:10
PROVIDERS: ATTEND Family Medicine
DX: R92.8 Other abnormal and inconclusive findings on diagnostic imaging of breast

== ENCOUNTER → 2024-09-05 | Day surgery (SDC) | payer OTHER ==
--- NOTE | 2024-09-11 10:23 | MM ---
Reason for Exam: Post Procedure Mammogram. Last screening mammogram was performed 4 month(s) ago. Patient History: Menarche at age 9. First Full-Term at age 17. Right ovary removed at age 34. Hysterectomy at age 34. Patient has history of breast feeding. 2022, Excisional Biopsy on the Right side. 2013, Excisional Biopsy on the Left side. Paternal grandmother had breast cancer under age 50. Risk Values: Chitra 5 year model risk: 1.2%. NCI Lifetime model risk: 10.4%. Prior Study Comparison: 01/10/2023 Right MG 3D diag mammo w/cad RT, [facility]. 05/14/2023 Left MG 3D diag mammo w/cad LT, [facility]. 05/15/2024 Bilateral MG 3D diag mammo w/cad [facility], [facility]. Tissue Density: Right: There are scattered areas of fibroglandular density. Pathology Description: Location: 2 o'clock. Marker Left Behind. Needle Type: Odysii Cores: 3 Gauge: 12 The procedure of ultrasound guided core biopsy was explained to the patient. Benefits, alternatives, and risks were discussed. An informed consent was then obtained. The patient was placed in supine positioning for imaging and for the procedure. The overlying skin was prepped and draped in usual sterile fashion. Lidocaine buffered with bicarbonate was used as anesthetic into the skin and subcutaneous tissue up to area of concern in the right 2:00 breast 3 cm from the nipple. A mary jo was made with surgical scalpel. Under ultrasound guidance, a 12-gauge vacuum assisted biopsy gun device was used to obtain 3 core samples. Following this, a biopsy clip was left in lesion. The patient tolerated the procedure well without any immediate complication. The patient was kept in the radiology department for short stay after the procedure and then discharged home in stable condition. Postprocedure mammogram: The patient was transferred to mammography for physician ordered post procedure mammogram for clip placement verification. Impression: Successful, uncomplicated ultrasound guided core biopsy of area of concern in the right 2:00 breast 3 cm from the nipple , full pathology results to follow. [facility], , 09/05/2024 12:09 PM. Pathology Results: Result: Benign, Fat necrosis. Pathology and radiology were reviewed. Findings are concordant. 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 Notes No definitive features of malignancy are seen within the current specimen. Examination shows fat necrosis and fibrosis with mastitis and multinucleated foreign body type reaction to refractile material. Considerations for the features seen include reaction to traumatic injury and/or prior procedure related changes or cystic duct rupture. Clinical correlation with imaging studies is suggested, as indicated. Overall Assessment: Benign Assessment: MG diagnostic mammo RT wo CAD - Right: Benign, BI-RAD 2. Management: Diagnostic Mammogram of the right breast in 6 months. Electronically signed and approved by: Malvin Bowers M.D. Radiologis
== END ==
LOC: RADUSWWP 10:16
PROVIDERS: ATTEND Family Medicine
DX: N61.21 Granulomatous mastitis, right breast (principal)
CPT/HCPCS: 77065; 88305

== ENCOUNTER → 2024-10-03 | Outpatient (CLI) | payer OTHER ==
[2024-10-03 15:00] VITALS: BP 135/91; PULSE 82; RESP 18; TEMP 97.7
--- NOTE | 2024-10-03 15:22 | P.PN ---
Subjective Progress Note Date: 10/03/24 02/16/23 Chief Complaint: Right bloody nipple discharge Ita is a 47-year-old white female seen in consultation for Makeda LUIS regarding right nipple discharge which is ? bloody. She had a bilateral mammogram performed on which was benign BIRADS 2. Following the discharge she had a repeat right breast mammogram as well as right breast ultrasound performed. These did not reveal any lesions of concern on the mammogram and on the ultrasound of 5 mm cystic area was seen in the retroareolar region. These were done on . The patient has had bilateral nipple discharge for many years however recently from the right side she noted blood. He says occurred multiple times. It does occur spontaneously as well. It is not happening from the left side. She has had 2 lesions removed from the left breast in [place] in 2013, which were benign in the past. She has never had any surgery on the right breast. She is not complaining of any trauma or infection in her breast. 10-03-24 Patient on 04-17-23 had a right duct exploration for bloody nipple discharge benign 05-15-24 bilateral mammogram and bilateral breast ultrasound. The recommendation following this was for a left breast ultrasound in 6 months and a right breast repeat ultrasound in 3 months. This led to a right breast mammogram and ultrasound on 08-15-24 which led to a core biopsy of the right breast on 09-05-24 pathology chronic mastitis with fat necrosis She is not concerned about any new masses or nodules in her breast due for left breast ultrsaound in October 2024 She is not complaining of nipple discharge on either side Caffiene: 1 cup/day nicotine: none chocolate: occasional BCP: remote past 5 years Family History: paternal grandmother: bilateral breast cancer from this maternal grandfather: bone in jaw cancer, skin cancers Family history of malignant hyperthermia in her mother Hormonal History: menarche: 9 M3, breast fed: yes, age at first : 17 periods hysterectoy 2009 done for endometirosis, still has left ovary Surgical History: gallbladder endometriosis surgery burned areas, 5 times hysterectony and right ovary removed lower spine nerves burned bladder surgery Medical History: chronic back pain weight Social history: Nicotine: Negative Alcohol: Occasional Drugs: Marijuana occasional - Constitutional Constitutional: Denies chills, Denies fever - EENT Eyes: denies blurred vision, denies pain Ears: deny: decreased hearing, tinnitus Ears, nose, mouth and throat: Reports headache - Breasts Breasts: bilateral: as per HPI - Cardiovascular Cardiovascular: Denies chest pain, Denies shortness of breath - Respiratory Respiratory: Denies cough - Gastrointestinal Gastrointestinal: Denies abdominal pain, Denies diarrhea, Denies nausea, Denies vomiting - Genitourinary (Female) Genitourinary: Denies dysuria, Denies hematuria - Menstruation Menstruation: Reports as per HPI - Musculoskeletal Comment: back pain Musculoskeletal: Denies myalgias - Integumentary Integumentary: Denies pruritus, Denies rash - Neurological Neurological: Reports as per HPI, Reports numbness, Reports weakness - Psychiatric Psychiatric: Denies anxiety, Denies depression - Endocrine Endocrine: Denies fatigue, Denies weight change - Hematologic/Lymphatic Comment: none - Allergic/Immunologic Allergic/Immunologic: Reports seasonal allergies Past Medical History Past Medical History: Musculoskeletal Disorder Additional Past Medical History / Comment(s): pain lower lumbar,sacral spine History of Any Multi-Drug Resistant Organisms: None Reported Past Surgical History: Bladder Surgery, Cholecystectomy, Hysterectomy Additional Past Surgical History / Comment(s): BLADDER SUSPENSION, ENDOMETRIOSIS SURGERY Past Anesthesia/Blood Transfusion Reactions: Previous Problems w/ Anesthesia, Family Hisory of Malignant Hyperthermia Additional Past Anesthesia/Blood Transfusion Reaction / Comment(s): pt states experiences decrease b/p following anesthesia,. mother hx malignant hyperthermia-patient has never had this problem Past Psychological History: No Psychological Hx Reported Smoking Status: Former smoker Past Alcohol Use History: Occasional Past Drug Use History: None Reported - Past Family History Mother Family Medical History: Deep Vein Thrombosis (DVT) Medications and Allergies Home Medications Medication Instructions Recorded Confirmed Type Acetaminophen-Codeine 300-30mg 1 tab PO DIRECTED PRN 02/16/23 02/16/23 History [Tylenol w/codeine #3] Liraglutide [Saxenda] 3 mg .ROUTE DAILY 02/16/23 02/16/23 History Allergies Allergy/AdvReac Type Severity Reaction Status Date / Time Iodinated Contrast Media Allergy Rash/Hives Verified 02/16/23 10:21 tramadol AdvReac Unknown Verified 02/16/23 10:21 Objective - Vital Signs Vital signs: Vital Signs Temp 97.7 F 10/03/24 14:56 Pulse 82 10/03/24 14:56 Resp 18 10/03/24 14:56 BP 135/91 10/03/24 14:56 Pulse Ox 96 10/03/24 14:56 FiO2 Intake & Output 10/02/24 10/03/24 10/03/24 18:59 06:59 18:59 Weight 131.088 kg - Constitutional General appearance: Present: cooperative - EENT Eyes: Present: EOMI ENT: Present: hearing grossly normal - Neck Neck: Present: normal ROM - Respiratory Respiratory: bilateral: CTA - Cardiovascular Heart sounds: normal: S1, S2 - Integumentary Integumentary: Present: normal turgor - Musculoskeletal Musculoskeletal: Present: gait normal - Psychiatric Psychiatric: Present: A&O x's 3, appropriate affect, intact judgment & insight - Additional findings Additional findings: Breast Exam: BRA: 44DD Inspection: Bilateral grade 2 ptosis Palpation: Right breast: Multi-positional exam fibrocystic changes, no dominant masses or nodules of concern, biopsy site clean and dry Right axilla: No adenopathy of concern Left breast: Multi-positional exam fibrocystic changes no nipple discharge on today's exam Left axilla: No adenopathy of concern Assessment and Plan Assessment: Impression: Bilateral nipple discharge resolved Bilateral fibrocystic breast changes core biopsy right breast 09-05-24 benign bilateral mammogram and ultrasound on 05-15-24 recommend right breast ultrasound in 3 months ad left in 6 months 05-15-24 bilateral mammogram and bilateral breast ultrasound recommendation for repeat right breast ultrasound in 3 months which led to ultrasound core biopsy of the right breast on 09-05-2024. Left breast ultrasound was recommended in 6 months which will be in October 2024. Plan: Left breast ultrasound in October 2024 with examination at that time Bilateral mammogram in April 2025 with examination at that time Patient to follow-up sooner any questions or concerns Cc: Makeda Juarez
== END ==
LOC: WWCWWP 14:49
PROVIDERS: ATTEND Surgery
DX: R92.8 Other abnormal and inconclusive findings on diagnostic imaging of breast (principal); N60.11 Diffuse cystic mastopathy of right breast; N60.12 Diffuse cystic mastopathy of left breast; Z87.891 Personal history of nicotine dependence; Z88.5 Allergy status to narcotic agent; Z91.041 Radiographic dye allergy status; Z88.7 Allergy status to serum and vaccine

== ENCOUNTER → 2024-11-14 | Outpatient (CLI) | payer OTHER ==
[2024-11-14 08:51] VITALS: BP 132/92; PULSE 74; RESP 16; TEMP 98.6
--- NOTE | 2024-11-14 09:21 | P.PN ---
Subjective Progress Note Date: 11/14/24 11-14-24 02/16/23 Chief Complaint: Right bloody nipple discharge Ita is a 47-year-old white female seen in consultation for Makeda LUIS regarding right nipple discharge which is ? bloody. She had a bilateral mammogram performed on which was benign BIRADS 2. Following the discharge she had a repeat right breast mammogram as well as right breast ultrasound performed. These did not reveal any lesions of concern on the mammog davie and on the ultrasound of 5 mm cystic area was seen in the retroareolar region. These were done on . The patient has had bilateral nipple discharge for many years however recently from the right side she noted blood. He says occurred multiple times. It does occur spontaneously as well. It is not happening from the left side. She has had 2 lesions removed from the left breast in [place] in 2013, which were benign in the past. She has never had any surgery on the right breast. She is not complaining of any trauma or infection in her breast. 10-03-24 Patient on 04-17-23 had a right duct exploration for bloody nipple discharge benign 05-15-24 bilateral mammogram and bilateral breast ultrasound. The recommendation following this was for a left breast ultrasound in 6 months and a right breast repeat ultrasound in 3 months. This led to a right breast mammogram and ultrasound on 08-15-24 which led to a core biopsy of the right breast on 09-05-24 pathology chronic mastitis with fat necrosis She is not concerned about any new masses or nodules in her breast due for left breast ultrasound in October 2024 She is not complaining of nipple discharge on either side 11-14-24 Patient on 04-17-23 had a right duct exploration for bloody nipple discharge benign 11-14-24 bilateral mammogram and bilateral breast ultrasound. The recommendation following this was for a left breast ultrasound in 6 months and a right breast repeat ultrasound in 3 months. This led to a right breast mammogram and ultrasound on 08-15-24 which led to a core biopsy of the right breast on pathology chronic mastitis with fat necrosis She is not concerned about any new masses or nodules in her breast left breast ultrasound in October 2024, this was done on 11-14-24 and showed a lobulated hypoechoic lesion on the left measuring 2.2 by 1.2 cm which was stable, repeat ultrasound left in 6 months, Chitra 5-year risk: 1.2% NCI lifetime risk: 10.4% She is not complaining of nipple discharge on either side, she is complaining of tenderness greatest in the upper outer quadrant area of the left breast Since she was seen last she tore her right knee meniscus Caffiene: 1 cup/day nicotine: none chocolate: occasional BCP: remote past 5 years Family History: paternal grandmother: bilateral breast cancer from this maternal grandfather: bone in jaw cancer, skin cancers Family history of malignant hyperthermia in her mother Hormonal History: menarche: 9 M3, breast fed: yes, age at first : 17 periods hysterectoy 2010 done for endometirosis, still has left ovary Surgical History: gallbladder endometriosis surgery burned areas, 5 times hysterectony and right ovary removed lower spine nerves burned bladder surgery Medical History: chronic back pain weight Social history: Nicotine: Negative Alcohol: Occasional Drugs: Marijuana occasional - Constitutional Constitutional: Denies chills, Denies fever - EENT Eyes: denies blurred vision, denies pain Ears: deny: decreased hearing, tinnitus Ears, nose, mouth and throat: Reports headache - Breasts Breasts: bilateral: as per HPI - Cardiovascular Cardiovascular: Denies chest pain, Denies shortness of breath - Respiratory Respiratory: Denies cough - Gastrointestinal Gastrointestinal: Denies abdominal pain, Denies diarrhea, Denies nausea, Denies vomiting - Genitourinary (Female) Genitourinary: Denies dysuria, Denies hematuria - Menstruation Menstruation: Reports as per HPI - Musculoskeletal Comment: back pain Musculoskeletal: Denies myalgias - Integumentary Integumentary: Denies pruritus, Denies rash - Neurological Neurological: Reports as per HPI, Reports numbness, Reports weakness - Psychiatric Psychiatric: Denies anxiety, Denies depression - Endocrine Endocrine: Denies fatigue, Denies weight change - Hematologic/Lymphatic Comment: none - Allergic/Immunologic Allergic/Immunologic: Reports seasonal allergies Past Medical History Past Medical History: Musculoskeletal Disorder Additional Past Medical History / Comment(s): pain lower lumbar,sacral spine History of Any Multi-Drug Resistant Organisms: None Reported Past Surgical History: Bladder Surgery, Cholecystectomy, Hysterectomy Additional Past Surgical History / Comment(s): BLADDER SUSPENSION, ENDOMETRIOSIS SURGERY Past Anesthesia/Blood Transfusion Reactions: Previous Problems w/ Anesthesia, Family Hisory of Malignant Hyperthermia Additional Past Anesthesia/Blood Transfusion Reaction / Comment(s): pt states experiences decrease b/p following anesthesia,. mother hx malignant hyperthermia-patient has never had this problem Past Psychological History: No Psychological Hx Reported Smoking Status: Former smoker Past Alcohol Use History: Occasional Past Drug Use History: None Reported - Past Family History Mother Family Medical History: Deep Vein Thrombosis (DVT) Medications and Allergies Home Medications Medication Instructions Recorded Confirmed Type Acetaminophen-Codeine 300-30mg 1 tab PO DIRECTED PRN 02/16/23 02/16/23 History [Tylenol w/codeine #3] Liraglutide [Saxenda] 3 mg .ROUTE DAILY 02/16/23 02/16/23 History Allergies Allergy/AdvReac Type Severity Reaction Status Date / Time Iodinated Contrast Media Allergy Rash/Hives Verified 02/16/23 10:21 tramadol AdvReac Unknown Verified 02/16/23 10:21 Objective - Vital Signs Vital signs: Vital Signs Temp 98.6 F 11/14/24 08:49 Pulse 74 11/14/24 08:49 Resp 16 11/14/24 08:49 BP 132/92 11/14/24 08:49 Pulse Ox 95 11/14/24 08:49 FiO2 Intake & Output 11/13/24 11/14/24 11/14/24 18:59 06:59 18:59 Weight 133.81 kg - EENT ENT: Present: hearing grossly normal - Neck Neck: Present: normal ROM - Respiratory Respiratory: bilateral: CTA - Cardiovascular Rhythm: regular Heart sounds: normal: S1, S2 - Integumentary Integumentary: Present: normal turgor - Musculoskeletal Musculoskeletal: Present: gait normal - Psychiatric Psychiatric: Present: A&O x's 3, appropriate affect, intact judgment & insight - Additional findings Additional findings: Breast Exam: BRA: 44DD Inspection: Bilateral grade 2 ptosis Palpation: Right breast: Multi-positional exam fibrocystic changes, no dominant masses or nodules of concern Right axilla: No adenopathy of concern Left breast: Multi-positional exam fibrocystic changes no nipple discharge on today's exam, there is some increased tenderness in the upper outer quadrant of the left breast with some prominent fibrocystic breast tissue Left axilla: No adenopathy of concern Assessment and Plan Assessment: Impression: Bilateral nipple discharge resolved Bilateral fibrocystic breast changes core biopsy right breast 09-05-24 benign bilateral mammogram and ultrasound on 05-15-24 recommend right breast ultrasound in 3 months and left in 6 months; 05-15-24 bilateral mammogram and bilateral breast ultrasound recommendation for repeat right breast ultrasound in 3 months which led to ultrasound core biopsy of the right breast on 09-05-2024. Left breast ultrasound was recommended in 6 months which will be in October 2024. Ultrasound 11-14-2024 BI-RADS 3 recommendation for a diagnostic breast ultrasound of the left breast in 6 months Plan: mammogram and bilateral breast ultrasound in 6 months Breast MRI secondary to nipple discharge/breast pain Follow-up after breast MRI Cc: Makeda Juarez
== END ==
LOC: WWCWWP 08:44
PROVIDERS: ATTEND Surgery
DX: R92.8 Other abnormal and inconclusive findings on diagnostic imaging of breast (principal); N60.11 Diffuse cystic mastopathy of right breast; N60.12 Diffuse cystic mastopathy of left breast; Z87.891 Personal history of nicotine dependence; Z88.5 Allergy status to narcotic agent; Z91.041 Radiographic dye allergy status; Z88.7 Allergy status to serum and vaccine

== ENCOUNTER → 2024-11-14 | Outpatient (CLI) | payer OTHER ==
--- NOTE | 2024-11-14 08:36 | USB ---
Reason for Exam: Follow-up at short interval from prior study. Patient History: Menarche at age 9. First Full-Term at age 17. Right ovary removed at age 34. Hysterectomy at age 34. Patient has history of breast feeding. 09/05/2024, Benign US biopsy breast VAD RT on the right side. 2022, Excisional Biopsy on the Right side. 2013, Excisional Biopsy on the Left side. Paternal grandmother had breast cancer under age 50. Risk Values: Chitra 5 year model risk: 1.2%. NCI Lifetime model risk: 10.4%. Technique: Method: Targeted. Doppler: Color. Patient Position: RPO. Prior Study Comparison: 05/14/2023 Left MG 3D diag mammo w/cad LT, [facility]. 05/15/2024 Bilateral MG 3D diag mammo w/cad [facility], [facility]. 09/05/2024 Right MG diagnostic mammo RT wo CAD, [facility]. Findings: The lateral section of the breast of the left breast, the axilla of the left breast and the retroareolar of the left breast were scanned. Lobulated hypoechoic lesion left breast 3:00 measures 2.2 x 1.2 cm and is unchanged from prior study. Small cyst at the left retroareolar region measuring 4 x 3 mm. Overall Assessment: Probably benign, BI-RAD 3 Management: Diagnostic Breast Ultrasound of the left breast in 6 months. A clinical breast exam by your physician is recommended on an annual basis and results should be correlated with mammographic findings. This exam should not preclude additional follow-up of suspicious palpable abnormalities. Results were given to the patient verbally at the time of exam. [facility], , 11/14/2024 8:33 AM. Electronically signed and approved by: Malvin Bowers M.D. Radiologis
== END | disposition home or self-care (01) ==
LOC: RADUSWWP 08:10
PROVIDERS: ATTEND Family Medicine
DX: R92.8 Other abnormal and inconclusive findings on diagnostic imaging of breast (principal); Z90.721 Acquired absence of ovaries, unilateral; Z80.3 Family history of malignant neoplasm of breast

== ENCOUNTER → 2024-12-01 | Outpatient (CLI) | payer OTHER ==
--- NOTE | 2024-12-03 08:29 | BMR ---
EXAM DATE: 12/01/2024 EXAM DESCRIPTION: MRI-Breast Bilat (W/WO Contrast) INDICATION: Bilateral nipple discharge with right bloody nipple discharge. Previous biopsy and excisional biopsy of left breast. COMPARISON: PRIOR MRIs: None available. Correlation to mammograms: 09/05/2024 Correlation to ultrasound: 11/14/2024. CONTRAST: 13 cc Gadavist IV gadolinium contrast TECHNIQUE: Multiplanar multisequence MR imaging of both breasts was performed with a dedicated breast coil. Images were obtained before and after administration of IV gadolinium, using the standard breast mass protocol. Computer aided detection was utilized for interpretation. FINDINGS: LMP: Not provided General breast composition: There are scattered areas of fibroglandular tissue Background parenchymal enhancement: Mild RIGHT BREAST: The T2 weighted series shows no areas of abnormal signal intensity. Right biopsy marker noted. Review of the dynamic series shows no early or abnormal enhancement. LEFT BREAST: The T2 weighted series shows no areas of abnormal signal intensity. Intramammary lymph node. Review of the dynamic series shows no early or abnormal enhancement. LYMPH NODES: There is no evidence of internal mammary or axillary adenopathy. IMPRESSION: RIGHT BREAST: No MR evidence of malignancy. LEFT BREAST: No MR evidence of malignancy. OVERALL ASSESSMENT -- BI-RADS 2: Benign Clinical management for bloody nipple Discharge is recommended. ANNUAL SCREENING BREAST MRI IN ADDITION TO MAMMOGRAPHY IS RECOMMENDED IN PATIENTS WITH LIFETIME RISK OF BREAST CANCER >20% MTDD
== END | disposition home or self-care (01) ==
LOC: RADMRIMAIN 20:45
PROVIDERS: ATTEND Surgery
DX: N64.52 Nipple discharge (principal)
CPT/HCPCS: 77049; A9585

== ENCOUNTER → 2025-01-13 | Outpatient (CLI) | payer OTHER | END | disposition home or self-care (01) | LOC: LABWHC1 14:55 | PROVIDERS: ATTEND Family Medicine | DX: Z53.9 Procedure and treatment not carried out, unspecified reason (principal) ==